=== PATIENT | female | born 1990 | race Caucasian/White ===

== ENCOUNTER 2016-12-23 19:08 | Emergency (ER) | payer OTHER ==
[2016-12-23 19:24] VITALS: TEMP 98.3
[2016-12-23] MEDS ORDERED: SODIUM CHLORIDE 0.9% 1,000 ML IV STA ×2 (19:35)
[2016-12-23] MEDS ORDERED: HYDROmorphone 1 MG/ML 1 ML SYRINGE IVP STA (19:35)
[2016-12-23] MEDS ORDERED: ONDANSETRON 4 MG/2 ML VIAL IVP STA (19:35)
--- NOTE | 2016-12-23 19:38 | ED ---
General Adult HPI - General Chief complaint: Abdominal Pain Stated complaint: lower back & abdominal pain Time Seen by Provider: 12/23/16 19:31 Source: patient, RN notes reviewed Mode of arrival: ambulatory Limitations: no limitations - History of Present Illness Initial comments: Patient 26-year-old female who presents emergency room today with a chief complaint of right-sided flank pain over the last week. Does admit to some discomfort in lower side of the right back. Sitting today the pain greatly increased describes it as sharp pain also having pain sharp in nature to the right side of the lower abdomen. Patient states symptoms remind her of kidney stones that she had once in the past. She admits she's been somewhat nauseated today. She does admit to increased urinary frequency. She denies any other complaints or associated symptoms. Patient denies any recent fever, chills, shortness of breath, chest pain, numbness or tingling, dysuria or hematuria, constipation or diarrhea, headaches or visual changes, or any other complaints. - Related Data Home Medications Medication Instructions Recorded Confirmed Ibuprofen [Motrin] 800 mg PO TID PRN 12/23/16 12/23/16 Allergies Allergy/AdvReac Type Severity Reaction Status Date / Time latex Allergy Skin Verified 12/23/16 19:28 Irritation Review of Systems ROS Statement: Those systems with pertinent positive or pertinent negative responses have been documented in the HPI. ROS Other: All systems not noted in ROS Statement are negative. Past Medical History Past Medical History: No Reported History Additional Past Medical History / Comment(s): Obstetric history: O+ abs neg, Rub nonimmune, Hep B neg, HIV NR. EDC by a 6 week US. 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 History of Any Multi-Drug Resistant Organisms: None Reported Past Surgical History: Cholecystectomy Additional Past Surgical History / Comment(s): Laparoscopy and four knee surgeries Past Anesthesia/Blood Transfusion Reactions: No Reported Reaction Past Psychological History: Anxiety Smoking Status: Never smoker Past Alcohol Use History: None Reported Past Drug Use History: None Reported - Past Family History Father Family Medical History: Diabetes Mellitus, Hypertension General Exam - General Exam Comments Initial Comments: General: The patient is awake and alert, in no distress, and does not appear acutely ill. Eye: Pupils are equal, round and reactive to light, extra-ocular movements are intact. No nystagmus. There is normal conjunctiva bilaterally. No signs of icterus. Ears, nose, mouth and throat: There are moist mucous membranes and no oral lesions. Neck: The neck is supple, there is no tenderness or JVD. Cardiovascular: There is a regular rate and rhythm. No murmur, rub or gallop is appreciated. Respiratory: Lungs are clear to auscultation, respirations are non-labored, breath sounds are equal. No wheezes, stridor, rales, or rhonchi. Gastrointestinal: Normal exam. Normal bowel sounds. Abdomen soft on palpation. Patient does have mild tenderness right flank. Mild tenderness right lower quadrant. No rebound tenderness no guarding. No CVA tenderness. Musculoskeletal: Normal ROM, no tenderness. Strength 5/5. Sensation intact. Pulses equal bilaterally 2+. Neurological: A&O x 3. CN II-XII intact, There are no obvious motor or sensory deficits. Coordination appears grossly intact. Speech is normal. Skin: Skin is warm and dry and no rashes or lesions are noted. Psychiatric: Cooperative, appropriate mood & affect, normal judgment. Limitations: no limitations Course Vital Signs 12/23/16 19:22 Temperature 98.3 F Pulse Rate 87 Respiratory 18 Rate Blood Pressure 136/82 O2 Sat by Pulse 100 Oximetry Medical Decision Making - Medical Decision Making Patient reexamined at this time shows no signs of distress. CAT scan revealing a right-sided ovarian cyst. No sign of appendicitis. Patient will be discharged home. - Lab Data Result diagrams: 12/23/16 19:45 12/23/16 19:45 Lab Results 12/23/16 12/23/16 12/23/16 Range/Units 19:45 19:45 19:45 WBC 8.2 (3.8-10.6) k/uL RBC 4.62 (3.80-5.40) m/uL Hgb 13.0 (11.4-16.0) gm/dL Hct 39.7 (34.0-46.0) % MCV 85.9 (80.0-100.0) fL MCH 28.0 (25.0-35.0) pg MCHC 32.6 (31.0-37.0) g/dL RDW 13.2 (11.5-15.5) % Plt Count 248 (150-450) k/uL Neutrophils % 64 % Lymphocytes % 28 % Monocytes % 5 % Eosinophils % 1 % Basophils % 0 % Neutrophils # 5.2 (1.3-7.7) k/uL Lymphocytes # 2.3 (1.0-4.8) k/uL Monocytes # 0.4 (0-1.0) k/uL Eosinophils # 0.1 (0-0.7) k/uL Basophils # 0.0 (0-0.2) k/uL Sodium 140 (137-145) mmol/L Potassium 4.1 (3.5-5.1) mmol/L Chloride 106 (98-107) mmol/L Carbon Dioxide 24 (22-30) mmol/L Anion Gap 10 mmol/L BUN 13 (7-17) mg/dL Creatinine 0.71 (0.52-1.04) mg/dL Est GFR (MDRD) Af Amer >60 (>60 ml/min/1.73 sqM) Est GFR (MDRD) Non-Af >60 (>60 ml/min/1.73 sqM) Glucose 93 (74-99) mg/dL Calcium 9.2 (8.4-10.2) mg/dL Total Bilirubin 0.7 (0.2-1.3) mg/dL AST 16 (14-36) U/L ALT 32 (9-52) U/L Alkaline Phosphatase 67 (38-126) U/L Total Protein 6.7 (6.3-8.2) g/dL Albumin 3.6 (3.5-5.0) g/dL Amylase 66 (30-110) U/L Lipase 154 (23-300) U/L Urine Color Urine Appearance (Clear) Urine pH (5.0-8.0) Ur Specific [place] (1.001-1.035) Urine Protein (Negative) Urine Glucose (UA) (Negative) Urine Ketones (Negative) Urine Blood (Negative) Urine Nitrate (Negative) Urine Bilirubin (Negative) Urine Urobilinogen (<2.0) mg/dL Ur Leukocyte Esterase (Negative) Urine RBC (0-5) /hpf Urine WBC (0-5) /hpf Ur Squamous Epith Cells (0-4) /hpf Calcium Oxalate Crystal (None) /hpf Amorphous Sediment (None) /hpf Urine HCG, Qual Not Detected (Not Detectd) 12/23/16 Range/Units 19:45 WBC (3.8-10.6) k/uL RBC (3.80-5.40) m/uL Hgb (11.4-16.0) gm/dL Hct (34.0-46.0) % MCV (80.0-100.0) fL MCH (25.0-35.0) pg MCHC (31.0-37.0) g/dL RDW (11.5-15.5) % Plt Count (150-450) k/uL Neutrophils % % Lymphocytes % % Monocytes % % Eosinophils % % Basophils % % Neutrophils # (1.3-7.7) k/uL Lymphocytes # (1.0-4.8) k/uL Monocytes # (0-1.0) k/uL Eosinophils # (0-0.7) k/uL Basophils # (0-0.2) k/uL Sodium (137-145) mmol/L Potassium (3.5-5.1) mmol/L Chloride (98-107) mmol/L Carbon Dioxide (22-30) mmol/L Anion Gap mmol/L BUN (7-17) mg/dL Creatinine (0.52-1.04) mg/dL Est GFR (MDRD) Af Amer (>60 ml/min/1.73 sqM) Est GFR (MDRD) Non-Af (>60 ml/min/1.73 sqM) Glucose (74-99) mg/dL Calcium (8.4-10.2) mg/dL Total Bilirubin (0.2-1.3) mg/dL AST (14-36) U/L ALT (9-52) U/L Alkaline Phosphatase (38-126) U/L Total Protein (6.3-8.2) g/dL Albumin (3.5-5.0) g/dL Amylase (30-110) U/L Lipase (23-300) U/L Urine Color Yellow Urine Appearance Cloudy H (Clear) Urine pH 7.5 (5.0-8.0) Ur Specific [place] 1.021 (1.001-1.035) Urine Protein Trace H (Negative) Urine Glucose (UA) Negative (Negative) Urine Ketones Negative (Negative) Urine Blood Negative (Negative) Urine Nitrate Negative (Negative) Urine Bilirubin Negative (Negative) Urine Urobilinogen <2.0 (<2.0) mg/dL Ur Leukocyte Esterase Moderate H (Negative) Urine RBC 1 (0-5) /hpf Urine WBC 8 H (0-5) /hpf Ur Squamous Epith Cells 6 H (0-4) /hpf Calcium Oxalate Crystal Occasional H (None) /hpf Amorphous Sediment Occasional H (None) /hpf Urine HCG, Qual (Not Detectd) Disposition Clinical Impression: Ovarian cyst Disposition: HOME SELF-CARE Condition: Good Instructions: Ovarian Cyst (ED) Additional Instructions: Please use medication as discussed. Please follow-up with family doctor/[employer] in the next 2 days of symptoms have not improved. Please return to emergency room if the symptoms increase or worsen or for any other concerns. Time of Disposition: 21:59
[2016-12-23 20:19] LABS: Basophils % (A) 0 %; CH 28.4; CHCM 33.2; Eosinophils # (A) 0.1 k/uL (0-0.7); Eosinophils % (A) 1 %; HCT 39.7 % (34.0-46.0); HDW 2.38; Luc # (Auto) 0.15; Luc % (Auto) 2; Lymphocytes # (A) 2.3 k/uL (1.0-4.8); Lymphocytes % (A) 28 %; MCHC 32.6 g/dL (31.0-37.0); MCV 85.9 fL (80.0-100.0); Mean Platelet Volume 7.8; Monocytes # (A) 0.4 k/uL (0-1.0); Monocytes % (A) 5 %; Neutrophils # (A) 5.2 k/uL (1.3-7.7); Neutrophils % (A) 64 %; RBC 4.62 m/uL (3.80-5.40); RDW 13.2 % (11.5-15.5); WBC 8.2 k/uL (3.8-10.6)
[2016-12-23 20:30] LABS: Amorphous Sediment,Urine Occasional /hpf; Appearance,Urine Cloudy (Clear); Bilirubin,Urine Negative (Negative); Calcium Oxalate Crystals,Urine Occasional /hpf; Glucose,Urine (UA) Negative (Negative); Ketones,Urine Negative (Negative); Leukocyte Esterase,Urine Moderate (Negative); Nitrite,Urine Negative (Negative); PH, Urine 7.5 (5.0-8.0); Particle Count 7847; Protein,Urine Trace (Negative); RBC,Urine 1 /hpf (0-5); Specific Gravity,Urine 1.021 (1.001-1.035); Squamous Epithelial Cell,Urine 6 /hpf (0-4); UA Billing (MACRO vs. MICRO) MICRO; Urobilinogen,Urine <2.0 mg/dL (<2.0); WBC,Urine 8 /hpf (0-5)
--- NOTE | 2016-12-23 20:31 | XR ---
EXAMINATION TYPE: XR KUB DATE OF EXAM: 12/23/2016 8:23 PM COMPARISON: 08/30/2016 HISTORY: Flank pain TECHNIQUE: 2 views FINDINGS: Bowel gas pattern is normal. There is no sign of intestinal obstruction or pneumoperitoneum . Fecal pattern is normal. There are clips from cholecystectomy. Lung bases are clear. There are no p athologic calcifications over the kidneys. IMPRESSION: Nonacute abdomen. No change.
[2016-12-23 20:56] LABS: ALT 32 U/L (9-52); AST 16 U/L (14-36); Alkaline Phosphatase 67 U/L (38-126); Amylase 66 U/L (30-110); Anion Gap 10 mmol/L; Blood Urea Nitrogen 13 mg/dL (7-17); Calcium 9.2 mg/dL (8.4-10.2); Carbon Dioxide 24 mmol/L (22-30); Chloride 106 mmol/L (98-107); Glucose 93 mg/dL (74-99); Non-African American GFR(MDRD) >60 (>60 ml/min/1.73 sqM); Potassium 4.1 mmol/L (3.5-5.1); Sodium 140 mmol/L (137-145); Total Bilirubin 0.7 mg/dL (0.2-1.3); Total Protein 6.7 g/dL (6.3-8.2)
[2016-12-23] MEDS ORDERED: RX INFO: IV CONTRAST WAS GIVEN 1 EACH MISC MISCELLANE PRN (21:14)
--- NOTE | 2016-12-23 21:53 | CT ---
EXAMINATION TYPE: CT abdomen pelvis w con DATE OF EXAM: 12/23/2016 9:38 PM COMPARISON: NONE HISTORY: Right flank and right lower quadrant pain. CT DLP: 416.30 mGycm Automated exposure control for dose reduction was used. TECHNIQUE: Helical acquisition of images was performed from the lung bases through the pelvis. CONTRAST: Performed without Oral Contrast and with IV Contrast, patient injected with 100 mL of Omnipaque 300. FINDINGS: The lung bases are clear. There is no pleural effusion. Heart size is normal. Liver spleen pancreas appear normal. There are clips from cholecystectomy. Bile ducts are not dilated . There is no adrenal mass. Kidneys show satisfactory contrast opacification. There is no hydronephro sis. There are bilateral 1 cm cortical cysts. There is no retroperitoneal adenopathy. There is a 4 cm cyst on the right ovary. There is no free fluid. Bladder distends smoothly. I see no intestinal wall thickening. There are no dilated loops. Appendix is not seen. There is no sign of appendicitis. I se e no bony destructive process. Uterus is retroverted. IMPRESSION: LARGE RIGHT OVARIAN CYST. NO EVIDENCE OF APPENDICITIS. NO EVIDENCE OF RENAL STONE OR OBSTRUCTION. SMA LL BILATERAL RENAL CYSTS.
[2016-12-23 22:05] VITALS: RESP 16
[2016-12-23 22:13] VITALS: BP 118/69; PULSE 66
== END 2016-12-23 22:04 | disposition home or self-care (01) ==
LOC: EC 19:08
DX: N83.201 Unspecified ovarian cyst, right side (principal); Z91.040 Latex allergy status
CPT/HCPCS: 99284; 96374; 96375; 36415; 80053; 82150; 83690; 85025; 81001; 81025; 74000; 74177; J2405; J1170; Q9967

== ENCOUNTER → 2016-12-29 | Outpatient (CLI) | payer OTHER ==
--- NOTE | 2016-12-29 21:22 | US ---
EXAMINATION TYPE: US pelvic complete DATE OF EXAM: 12/29/2016 4:28 PM COMPARISON: CT abdomen and pelvis 12/23/2016. Prior pelvic ultrasound May 15, 2016. CLINICAL HISTORY: N83.20 PREV OVARIAN CYST. Recent abnormal CT. TECHNIQUE: Transabdominal (TA) pelvic ultrasound only, offered TV approach and patient said no since we saw cyst transabdominally. Date of LMP: 12/02/2016 EXAM MEASUREMENTS: Uterus: 11.0 x 4.6 x 3.6cm Endometrial Stripe: 0.6cm Right Ovary: 4.5 x 3.8 x 3.9cm Left Ovary: 2.9 x 2.2 x 1.7cm TECHNOLOGIST IMPRESSION: 1. Uterus: flexed uterus wnl 2. Endometrium: wnl 3. Right Ovary: complex 4.1cm with daughter cysts seen within 4. Left Ovary: wnl 5. Bilateral Adnexa: wnl 6. Posterior cul-de-sac: wnl Corresponding to recent CT there is 4.5 x 3.9 x 3.8 cm cystic lesion in right ovary that has several thin round septations internally. No suspicious nodularity is identified. Exam is suboptimal as color and transvaginal imaging is not performed, latter refused by patient per technologist. IMPRESSION: Corresponding to recent CT there is new 4.1 cm cystic lesion with round thin internal sep ta. No suspicious nodularity is seen on images saved. Suboptimal study as detailed above. Vascularity is not assessed. Malignant etiology felt less likely given interval new lesion since prior ultrasoun d.
== END | disposition home or self-care (01) ==
LOC: RADUSWWP 16:13
PROVIDERS: ATTEND Obstetrics & Gynecology
DX: N83.209 Unspecified ovarian cyst, unspecified side (principal)
CPT/HCPCS: 76856

== ENCOUNTER → 2017-02-09 | Outpatient (CLI) | payer OTHER ==
--- NOTE | 2017-02-09 09:42 | US ---
EXAMINATION TYPE: US pelvic complete DATE OF EXAM: 02/09/2017 9:12 AM COMPARISON: prior scans in pacs CLINICAL HISTORY: N83.20 Previous ovarian cyst. Follow up on previously seen rt ovarian cyst TECHNIQUE: Transabdominal (TA) EXAM MEASUREMENTS: Uterus: 7.3 x 4.9 x 6.1 cm Endometrial Stripe: 0.8 cm Right Ovary: 3.6 x 2.3 x 2.4 cm Left Ovary: 3.2 x 2.3 x 2.6 cm 1. Uterus: Retroflexed wnl 2. Endometrium: wnl 3. Right Ovary: wnl 4. Left Ovary: wnl 5. Bilateral Adnexa: wnl 6. Posterior cul-de-sac: no free fluid seen IMPRESSION: 1. No acute process.
== END | disposition home or self-care (01) ==
LOC: RADUSWWP 08:56
PROVIDERS: ATTEND Obstetrics & Gynecology
DX: N83.201 Unspecified ovarian cyst, right side (principal)
CPT/HCPCS: 76856

== ENCOUNTER 2017-07-07 21:25 | Emergency (ER) | payer OTHER ==
[2017-07-07 21:32] VITALS: RESP 18
[2017-07-07] MEDS ORDERED: DICYCLOMINE 10 MG/ML 2 ML AMP IM STA (21:45)
[2017-07-07] MEDS ORDERED: ONDANSETRON 4 MG/2 ML VIAL IVP STA (21:45)
[2017-07-07] MEDS ORDERED: SODIUM CHLORIDE 0.9% 1,000 ML IV STA (21:45)
--- NOTE | 2017-07-07 21:49 | ED ---
Abdominal Pain HPI - General Chief Complaint: Abdominal Pain Stated Complaint: abdominal pain Time Seen by Provider: 07/07/17 21:40 Source: patient Mode of arrival: ambulatory Limitations: no limitations - History of Present Illness Initial Comments: 27-year-old female patient presents to the emergency department for evaluation of abdominal pain and diarrhea. Patient states that Wednesday evening she began to have generalized abdominal cramping. Patient states Wednesday she began to have frequent episodes of watery diarrhea. Patient states that she has had several watery bowel movement movements daily since then. States that she has intermittent sharp crampy abdominal pain that waxes and wanes. She states she has vomited one time however doesn't feel nauseous. Patient states that whenever she eats or drinks anything she immediately has to have a bowel movement. Patient denies any recent fever, chills, shortness breath, chest pain , constipation, back pain, numbness, tingling, weakness, hematuria, dysuria, urinary frequency, urinary urgency, headache, visual changes, or any other complaints. She denies any dark, bloody, or black stools. Denies any recent travel or sick contacts. - Related Data Previous Rx's Medication Instructions Recorded Ibuprofen [Motrin] 800 mg PO Q6HR PRN #30 tab 12/23/16 Dicyclomine [Bentyl] 20 mg PO QID #20 tablet 07/07/17 Ondansetron [Zofran ODT] 4 mg PO Q8HR #10 tab 07/07/17 Allergies Allergy/AdvReac Type Severity Reaction Status Date / Time latex Allergy Skin Verified 07/07/17 22:31 Irritation Review of Systems ROS Statement: Those systems with pertinent positive or pertinent negative responses have been documented in the HPI. ROS Other: All systems not noted in ROS Statement are negative. Past Medical History Past Medical History: No Reported History Additional Past Medical History / Comment(s): Obstetric history: O+ abs neg, Rub nonimmune, Hep B neg, HIV NR. EDC by a 6 week US. 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 History of Any Multi-Drug Resistant Organisms: None Reported Past Surgical History: Cholecystectomy Additional Past Surgical History / Comment(s): Laparoscopy and four knee surgeries Past Anesthesia/Blood Transfusion Reactions: No Reported Reaction Past Psychological History: Anxiety Smoking Status: Never smoker Past Alcohol Use History: None Reported Past Drug Use History: None Reported - Past Family History Father Family Medical History: Diabetes Mellitus, Hypertension General Exam Limitations: no limitations General appearance: alert, in no apparent distress Eye exam: Present: normal appearance, PERRL, EOMI. Absent: scleral icterus, conjunctival injection, periorbital swelling ENT exam: Present: normal exam, normal oropharynx, mucous membranes moist Neck exam: Present: normal inspection. Absent: tenderness, meningismus, lymphadenopathy Respiratory exam: Present: normal lung sounds bilaterally. Absent: respiratory distress, wheezes, rales, rhonchi, stridor Cardiovascular Exam: Present: regular rate, normal rhythm, normal heart sounds. Absent: systolic murmur, diastolic murmur, rubs, gallop, clicks GI/Abdominal exam: Present: soft, hyperactive bowel sounds. Absent: distended, tenderness, guarding, rebound, rigid, normal bowel sounds Extremities exam: Present: normal inspection, full ROM, normal capillary refill. Absent: tenderness, pedal edema, joint swelling, calf tenderness Back exam: Present: normal inspection Neurological exam: Present: alert, oriented X3, CN II-XII intact Psychiatric exam: Present: normal affect, normal mood Skin exam: Present: warm, dry, intact, normal color. Absent: rash Course Vital Signs 07/07/17 07/07/17 21:30 23:22 Temperature 97.8 F 98.7 F Pulse Rate 96 60 Respiratory 18 18 Rate Blood Pressure 117/80 128/60 O2 Sat by Pulse 100 100 Oximetry Medical Decision Making - Medical Decision Making 27-year-old female patient presents to emergency department today for complaints of diarrhea and abdominal cramping. Labs were reviewed and were unremarkable except for a large amount of leukocyte esterase in the urine. Urine was sent for culture. Patient was given IV fluids, Bentyl, and Zofran here in department and is feeling much better. Patient will be discharged home with a prescription for Zofran and Bentyl by mouth. Patient instructed to follow up with her primary care physician for recheck in 1-2 days. Instructed to return here immediately for any new, worsening, or concerning symptoms. Patient verbalizes understanding and agrees with this plan. - Lab Data Result diagrams: 07/07/17 21:54 07/07/17 21:54 Lab Results 08/23/17 08/23/17 08/23/17 Range/Units 21:54 21:54 22:29 WBC 10.9 H (3.8-10.6) k/uL RBC 5.09 (3.80-5.40) m/uL Hgb 14.7 (11.4-16.0) gm/dL Hct 43.1 (34.0-46.0) % MCV 84.7 (80.0-100.0) fL MCH 28.8 (25.0-35.0) pg MCHC 34.0 (31.0-37.0) g/dL RDW 13.1 (11.5-15.5) % Plt Count 328 (150-450) k/uL Neutrophils % 61 % Lymphocytes % 32 % Monocytes % 4 % Eosinophils % 1 % Basophils % 0 % Neutrophils # 6.6 (1.3-7.7) k/uL Lymphocytes # 3.5 (1.0-4.8) k/uL Monocytes # 0.4 (0-1.0) k/uL Eosinophils # 0.1 (0-0.7) k/uL Basophils # 0.0 (0-0.2) k/uL Sodium 141 (137-145) mmol/L Potassium 3.9 (3.5-5.1) mmol/L Chloride 106 (98-107) mmol/L Carbon Dioxide 22 (22-30) mmol/L Anion Gap 13 mmol/L BUN 14 (7-17) mg/dL Creatinine 0.80 (0.52-1.04) mg/dL Est GFR (MDRD) Af Amer >60 (>60 ml/min/1.73 sqM) Est GFR (MDRD) Non-Af >60 (>60 ml/min/1.73 sqM) Glucose 85 (74-99) mg/dL Calcium 10.0 (8.4-10.2) mg/dL Total Bilirubin 0.5 (0.2-1.3) mg/dL AST 15 (14-36) U/L ALT 32 (9-52) U/L Alkaline Phosphatase 83 (38-126) U/L Total Protein 7.7 (6.3-8.2) g/dL Albumin 4.5 (3.5-5.0) g/dL Amylase 82 (30-110) U/L Lipase 203 (23-300) U/L Urine Color Urine Appearance (Clear) Urine pH (5.0-8.0) Ur Specific [place] (1.001-1.035) Urine Protein (Negative) Urine Glucose (UA) (Negative) Urine Ketones (Negative) Urine Blood (Negative) Urine Nitrite (Negative) Urine Bilirubin (Negative) Urine Urobilinogen (<2.0) mg/dL Ur Leukocyte Esterase (Negative) Urine RBC (0-5) /hpf Urine WBC (0-5) /hpf Ur Squamous Epith Cells (0-4) /hpf Urine Bacteria (None) /hpf Urine HCG, Qual Not Detected (Not Detectd) 07/07/17 Range/Units 22:29 WBC (3.8-10.6) k/uL RBC (3.80-5.40) m/uL Hgb (11.4-16.0) gm/dL Hct (34.0-46.0) % MCV (80.0-100.0) fL MCH (25.0-35.0) pg MCHC (31.0-37.0) g/dL RDW (11.5-15.5) % Plt Count (150-450) k/uL Neutrophils % % Lymphocytes % % Monocytes % % Eosinophils % % Basophils % % Neutrophils # (1.3-7.7) k/uL Lymphocytes # (1.0-4.8) k/uL Monocytes # (0-1.0) k/uL Eosinophils # (0-0.7) k/uL Basophils # (0-0.2) k/uL Sodium (137-145) mmol/L Potassium (3.5-5.1) mmol/L Chloride (98-107) mmol/L Carbon Dioxide (22-30) mmol/L Anion Gap mmol/L BUN (7-17) mg/dL Creatinine (0.52-1.04) mg/dL Est GFR (MDRD) Af Amer (>60 ml/min/1.73 sqM) Est GFR (MDRD) Non-Af (>60 ml/min/1.73 sqM) Glucose (74-99) mg/dL Calcium (8.4-10.2) mg/dL Total Bilirubin (0.2-1.3) mg/dL AST (14-36) U/L ALT (9-52) U/L Alkaline Phosphatase (38-126) U/L Total Protein (6.3-8.2) g/dL Albumin (3.5-5.0) g/dL Amylase (30-110) U/L Lipase (23-300) U/L Urine Color Light Yellow Urine Appearance Cloudy H (Clear) Urine pH 6.0 (5.0-8.0) Ur Specific [place] 1.013 (1.001-1.035) Urine Protein Negative (Negative) Urine Glucose (UA) Negative (Negative) Urine Ketones Negative (Negative) Urine Blood Negative (Negative) Urine Nitrite Negative (Negative) Urine Bilirubin Negative (Negative) Urine Urobilinogen <2.0 (<2.0) mg/dL Ur Leukocyte Esterase Large H (Negative) Urine RBC 2 (0-5) /hpf Urine WBC 1 (0-5) /hpf Ur Squamous Epith Cells 2 (0-4) /hpf Urine Bacteria Rare H (None) /hpf Urine HCG, Qual (Not Detectd) Disposition Clinical Impression: Gastroenteritis, Acute diarrhea Disposition: HOME SELF-CARE Condition: Good Instructions: Gastroenteritis (ED), Acute Diarrhea (ED) Additional Instructions: Increase fluids including Gatorade or Powerade. Start with clear liquid diet advance as tolerated. Bring stool sample for evaluation. Follow-up with primary care physician for recheck in 1-2 days. Return immediately for any new , worsening, or concerning symptoms. Prescriptions: Dicyclomine [Bentyl] 20 mg PO QID #20 tablet Ondansetron [Zofran ODT] 4 mg PO Q8HR #10 tab Referrals: Yassnie Pratt MD [Primary Care Provider] - 1-2 days Time of Disposition: 23:02
[2017-07-07 22:10] LABS: Basophils % (A) 0 %; CH 28.6; CHCM 33.9; Eosinophils # (A) 0.1 k/uL (0-0.7); Eosinophils % (A) 1 %; HCT 43.1 % (34.0-46.0); HDW 2.36; HGB 14.7 gm/dL (11.4-16.0); Luc # (Auto) 0.24; Luc % (Auto) 2; Lymphocytes # (A) 3.5 k/uL (1.0-4.8); Lymphocytes % (A) 32 %; MCH 28.8 pg (25.0-35.0); MCV 84.7 fL (80.0-100.0); Mean Platelet Volume 7.3; Monocytes # (A) 0.4 k/uL (0-1.0); Monocytes % (A) 4 %; Neutrophils # (A) 6.6 k/uL (1.3-7.7); Neutrophils % (A) 61 %; RBC 5.09 m/uL (3.80-5.40); RDW 13.1 % (11.5-15.5); WBC 10.9 k/uL (3.8-10.6); WBC (Perox) 10.89
[2017-07-07 22:13] LABS: ALT 32 U/L (9-52); AST 15 U/L (14-36); Alkaline Phosphatase 83 U/L (38-126); Amylase 82 U/L (30-110); Anion Gap 13 mmol/L; Blood Urea Nitrogen 14 mg/dL (7-17); Carbon Dioxide 22 mmol/L (22-30); Chloride 106 mmol/L (98-107); Glucose 85 mg/dL (74-99); Non-African American GFR(MDRD) >60 (>60 ml/min/1.73 sqM); Potassium 3.9 mmol/L (3.5-5.1); Sodium 141 mmol/L (137-145); Total Bilirubin 0.5 mg/dL (0.2-1.3); Total Protein 7.7 g/dL (6.3-8.2)
[2017-07-07 22:48] LABS: Appearance,Urine Cloudy (Clear); Bacteria,Urine Rare /hpf; Bilirubin,Urine Negative (Negative); Glucose,Urine (UA) Negative (Negative); Ketones,Urine Negative (Negative); Leukocyte Esterase,Urine Large (Negative); Nitrite,Urine Negative (Negative); Particle Count 2063; Protein,Urine Negative (Negative); RBC,Urine 2 /hpf (0-5); Specific Gravity,Urine 1.013 (1.001-1.035); Squamous Epithelial Cell,Urine 2 /hpf (0-4); UA Billing (MACRO vs. MICRO) MICRO; Urobilinogen,Urine <2.0 mg/dL (<2.0); WBC,Urine 1 /hpf (0-5)
[2017-07-07 23:25] VITALS: BP 128/60; PULSE 60; TEMP 98.7
== END 2017-07-07 23:22 | disposition home or self-care (01) ==
LOC: EC 21:25
DX: K52.9 Noninfective gastroenteritis and colitis, unspecified (principal); Z91.040 Latex allergy status
CPT/HCPCS: 36415; 80053; 82150; 83690; 85025; 81001; 81025; 87086; 99284; 96374; 96361; 96372; J0500; J2405; 87077; 87186

== ENCOUNTER 2017-09-26 18:29 | Emergency (ER) | payer OTHER ==
[2017-09-26 18:49] VITALS: BP 123/73; PULSE 87; RESP 18; TEMP 98.9
[2017-09-26] MEDS ORDERED: DEXAMETHASONE 4 MG TAB PO STA (19:37)
[2017-09-26] MEDS ORDERED: AMOXIC-POT CLAV 875-125MG 1 EACH TAB PO STA (19:37)
--- NOTE | 2017-09-26 19:42 | ED ---
ENT HPI - General Chief complaint: ENT Stated complaint: Fever, Sore Throat Time Seen by Provider: 09/26/17 19:06 Source: patient Mode of arrival: ambulatory Limitations: no limitations - History of Present Illness Initial comments: Patient is 27-year-old female presenting to the emergency department with chief complaint of sore throat 2 days associated with fevers and body aches. complaint: sore throat Onset/Timin -: days(s) Location: throat Severity: moderate Severity scale (1-10): 8 Quality: burning, sharp Consistency: constant Improves with: NSAID Worsens with: swallowing Associated Symptoms: fever, pain with swallowing - Related Data Home Medications Medication Instructions Recorded Confirmed Acetaminophen Tab [Tylenol Tab] 1,000 mg PO Q6HR PRN 09/26/17 09/26/17 Ibuprofen [Motrin] 800 mg PO TID PRN 09/26/17 09/26/17 Previous Rx's Medication Instructions Recorded Amoxic-Pot Clav 875-125Mg 1 tab PO Q12HR #19 tablet 09/26/17 [Augmentin 875-125] Allergies Allergy/AdvReac Type Severity Reaction Status Date / Time latex Allergy Skin Verified 09/26/17 18:56 Irritation Review of Systems ROS Statement: Those systems with pertinent positive or pertinent negative responses have been documented in the HPI. ROS Other: All systems not noted in ROS Statement are negative. Past Medical History Past Medical History: No Reported History Additional Past Medical History / Comment(s): Obstetric history: O+ abs neg, Rub nonimmune, Hep B neg, HIV NR. EDC by a 6 week US. 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 History of Any Multi-Drug Resistant Organisms: None Reported Past Surgical History: Cholecystectomy, Orthopedic Surgery Additional Past Surgical History / Comment(s): Laparoscopy and four knee surgeries Past Anesthesia/Blood Transfusion Reactions: No Reported Reaction Past Psychological History: Anxiety Smoking Status: Never smoker Past Alcohol Use History: None Reported Past Drug Use History: None Reported - Past Family History Father Family Medical History: Diabetes Mellitus, Hypertension General Exam - General Exam Comments Initial Comments: GENERAL: Pt awake and alert, well-appearing, well-nourished, and in no acute distress. HEAD: Atraumatic, normocephalic. EYES: Pupils equal, round, and reactive to light, extraocular movements intact, sclera anicteric, conjunctiva are normal. ENT: Posterior pharynx erythematous right tonsillar exudate. Uvula midline. Moist mucous membranes. NECK:Normal range of motion, supple left anterior neck lymphadenopathy. LUNGS: Breath sounds clear to auscultation bilaterally. No wheezes, rales, or rhonchi. HEART: Heart S1, S2, no S3 or S4. Regular rate and rhythm. No murmurs, rubs or gallops. ABDOMEN: Soft, nontender, nondistended, normoactive bowel sounds. No guarding, no rebound. No masses or organomegaly appreciated. MUSCULOSKELETAL: Normal ROM, no tenderness. Strength 5/5. EXTREMITIES: 2+ peripheral pulses. No edema, clubbing or cyanosis. No calf tenderness. NEUROLOGICAL: Pt oriented x 3. Cranial nerves II through XII grossly intact. Strength and sensation grossly intact. PSYCH: Normal mood, normal affect. SKIN: Warm, dry, intact. Normal turgor. No rashes or lesions. Limitations: no limitations Expanded Mouth exam: Absent: drooling, trismus, muffled voice, tongue normal, tongue elevation Course Vital Signs 09/26/17 18:47 Temperature 98.9 F Pulse Rate 87 Respiratory 18 Rate Blood Pressure 123/73 O2 Sat by Pulse 100 Oximetry Medical Decision Making - Medical Decision Making Pharyngitis suspect bacterial. Strep screen and influenza screening negative. Patient given 1 dose of Augmentin and Decadron in the emergency department. Patient instructed to continue Motrin for pain. Patient discharged home on Augmentin. Patient instructed to follow-up with primary care physician as directed. Patient started to return to the emergency department with any new or worsening symptoms. Patient agrees to treatment plan. Discharge instructions and return parameters reviewed. - Lab Data Lab Results 09/26/17 09/26/17 Range/Units 19:07 19:07 Influenza Type A RNA Not Detected (Not Detectd) Influenza Type B (PCR) Not Detected (Not Detectd) Group A Strep Rapid Negative (Negative) Disposition Clinical Impression: Pharyngitis Disposition: HOME SELF-CARE Condition: Good Instructions: Pharyngitis (ED) Additional Instructions: Finish antibiotics as prescribed. Continue Motrin for pain or discomfort. Increase oral intake. Please return to the emergency department with any new or worsening symptoms. Follow-up with primary care physician as directed. Prescriptions: Amoxic-Pot Clav 875-125Mg [Augmentin 875-125] 1 tab PO Q12HR #19 tablet Referrals: Yassine Pratt MD [Primary Care Provider] - 1-2 days Time of Disposition: 19:41
== END 2017-09-26 19:47 | disposition home or self-care (01) ==
LOC: EC 18:29
DX: J02.9 Acute pharyngitis, unspecified (principal); Z91.040 Latex allergy status
CPT/HCPCS: 87081; 87430; 87502; 99283; J8540

== ENCOUNTER 2017-09-27 20:52 | Emergency (ER) | payer OTHER ==
[2017-09-27] MEDS ORDERED: LIDOCAINE VISCOUS 2% 15 ML CUP MUCOUS MEM STA (21:24)
--- NOTE | 2017-09-27 21:31 | ED ---
ENT HPI - General Chief complaint: ENT Stated complaint: Recheck/Sore throat Time Seen by Provider: 09/27/17 21:10 Source: patient, family Mode of arrival: ambulatory Limitations: no limitations - History of Present Illness Initial comments: 's patient is a 27-year-old woman who states that she started having sore throat on about . She states that the pain is burning, it has gotten progressively worse. She was seen at [facility] Wednesday, and then here on yesterday. She states that she had 2 strep tests that were negative and yesterday she was started on Augmentin, but she continued to have sore throat. She states the pain is now moderately severe, worse with swallowing. She also has some discomfort to both ears. She has had fevers intermittently. She states that yesterday in addition to starting her on Timentin, she was given some Decadron which did improve the swelling that she had noted, but she has started having a little bit of cough after receiving the medicine. She does note that both of her children have had cold-like symptoms as well. MD complaint: sore throat, difficulty swallowing -: days(s) Location: throat Severity: severe Quality: burning Consistency: constant Improves with: none Worsens with: swallowing Associated Symptoms: fever, pain with swallowing, sore throat - Related Data Home Medications Medication Instructions Recorded Confirmed Acetaminophen Tab [Tylenol Tab] 1,000 mg PO Q6HR PRN 09/26/17 09/27/17 Ibuprofen [Motrin] 800 mg PO TID PRN 09/26/17 09/27/17 Previous Rx's Medication Instructions Recorded Amoxic-Pot Clav 875-125Mg 1 tab PO Q12HR #19 tablet 09/26/17 [Augmentin 875-125] Lidocaine Viscous [Xylocaine 5 ml PO Q3HR PRN #100 ml 09/27/17 Viscous 2%] Allergies Allergy/AdvReac Type Severity Reaction Status Date / Time latex Allergy Skin Verified 09/27/17 21:24 Irritation Review of Systems ROS Statement: Those systems with pertinent positive or pertinent negative responses have been documented in the HPI. ROS Other: All systems not noted in ROS Statement are negative. Constitutional: Reports: fever ENT: Reports: ear pain, throat pain Respiratory: Reports: cough. Denies: dyspnea Cardiovascular: Denies: chest pain, syncope Gastrointestinal: Reports: vomiting (Patient states that she did have an episode of vomiting yesterday). Denies: abdominal pain, diarrhea Genitourinary: Denies: dysuria, hematuria Musculoskeletal: Denies: back pain Skin: Denies: rash Neurological: Denies: headache, weakness, numbness Past Medical History Past Medical History: No Reported History Additional Past Medical History / Comment(s): Obstetric history: O+ abs neg, Rub nonimmune, Hep B neg, HIV NR. EDC by a 6 week US. 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 History of Any Multi-Drug Resistant Organisms: None Reported Past Surgical History: Cholecystectomy, Orthopedic Surgery Additional Past Surgical History / Comment(s): Laparoscopy and four knee surgeries Past Anesthesia/Blood Transfusion Reactions: No Reported Reaction Past Psychological History: Anxiety Smoking Status: Never smoker Past Alcohol Use History: None Reported Past Drug Use History: None Reported - Past Family History Father Family Medical History: Diabetes Mellitus, Hypertension General Exam Limitations: no limitations General appearance: alert, in no apparent distress Head exam: Present: atraumatic, normocephalic Eye exam: Present: normal appearance. Absent: scleral icterus, conjunctival injection ENT exam: Present: mucous membranes moist, TM's normal bilaterally, normal external ear exam, other (The patient has an approximately half centimeter ulceration to the right soft palate. There is also a little bit of inflammation to the right tonsillar pillar. The uvula is midline without edema. No evidence of peritonsillar abscess.) Neck exam: Present: normal inspection, tenderness, full ROM, lymphadenopathy ( Tender anterior cervical nodes). Absent: meningismus Respiratory exam: Present: normal lung sounds bilaterally. Absent: respiratory distress, wheezes, rales, rhonchi, stridor Cardiovascular Exam: Present: regular rate, normal rhythm, normal heart sounds. Absent: systolic murmur, diastolic murmur, rubs, gallop GI/Abdominal exam: Present: soft. Absent: distended, tenderness, guarding, rebound, rigid, organomegaly, mass, pulsatile mass, hernia Skin exam: Present: warm, dry, intact, normal color. Absent: rash Course Vital Signs 09/27/17 20:57 Temperature 99 F Pulse Rate 82 Respiratory 18 Rate Blood Pressure 139/86 O2 Sat by Pulse 99 Oximetry Disposition Clinical Impression: Pharyngitis Disposition: HOME SELF-CARE Condition: Good Instructions: Pharyngitis (ED) Prescriptions: Lidocaine Viscous [Xylocaine Viscous 2%] 5 ml PO Q3HR PRN #100 ml PRN Reason: Sore Throat Referrals: Yassine Pratt MD [Primary Care Provider] - 1-2 days
[2017-09-27 22:25] VITALS: BP 110/62; PULSE 67; RESP 20; TEMP 98.6
== END 2017-09-27 22:25 | disposition home or self-care (01) ==
LOC: EC 20:52
DX: J02.9 Acute pharyngitis, unspecified (principal); Z91.040 Latex allergy status
CPT/HCPCS: 99282

== ENCOUNTER → 2017-11-11 | Outpatient (CLI) | payer OTHER ==
--- NOTE | 2017-11-11 12:17 | CT ---
EXAMINATION TYPE: CT abdomen wo con DATE OF EXAM: 11/11/2017 COMPARISON: 12/23/2016 HISTORY: 27-year-old female with abdominal pain and cramping TECHNIQUE: Contiguous axial scanning of the abdomen without IV contrast. Coronal and sagittal reconst ructions performed. CT DLP: 446 mGycm Automated exposure control for dose reduction was used. FINDINGS: The heart is normal size without pericardial effusion. Lung bases clear without pleural effusion. Noncontrast appearance of the liver, and spleen show no gross abnormality. There is some soft tissue which appears contiguous with the pancreatic head that may extend along the right lateral aspect of the second portion of the duodenum, refer to axial images 28 through 33. Cho lecystectomy clips are present. Subcentimeter hypodensity lateral left kidney too small for accurate CT characterization but was pres ent previously suggestive of a cyst. No evidence for nephrolithiasis or hydronephrosis on either side. No dilated small bowel, free fluid, or free air. Scattered small mesenteric lymph nodes are demonstra tarsha. Normal appendix. Mild to moderate overall stool burden without pericolic inflammatory change. The pelvis is not imaged. No osseous destructive process. Some disc bulges are noted at L4-L5 and L5-S1. IMPRESSION: 1 STATUS POST CHOLECYSTECTOMY. 2. QUESTIONABLE FINDINGS OF POSSIBLE ANNULAR PANCREAS. IF THIS EVER BECOMES CLINICALLY IMPORTANT, CON TRAST ENHANCED MRI COULD FURTHER ASSESS. 3. OTHERWISE, NO ACUTE INFLAMMATORY PROCESS IDENTIFIED IN THE UPPER ABDOMEN.
== END | disposition home or self-care (01) ==
LOC: RADCTMAIN 11:01
PROVIDERS: ATTEND Family Medicine
DX: R10.30 Lower abdominal pain, unspecified (principal); Z90.49 Acquired absence of other specified parts of digestive tract
CPT/HCPCS: 74150

== ENCOUNTER → 2017-12-04 | Outpatient (CLI) | payer OTHER ==
--- NOTE | 2017-12-05 16:14 | MR ---
EXAMINATION TYPE: MR abdomen wo/w con DATE OF EXAM: 12/04/2017 COMPARISON: Correlation CT 11/11/2017 HISTORY: 27-year-old female R93.5 stomach pain, abnormal CT Technique: Multiplanar, multisequence images of the abdomen were obtained before and after administra tion of 6.5 mL intravenous Gadavist gadolinium contrast. FINDINGS: Heart normal size without pericardial effusion. The signal changes to suggest fatty infiltration of the liver. Cholecystectomy clips are present. No focal liver lesion or biliary ductal dilatation seen. Portal venous system is patent. A subcentimeter nonenhancing T2 hyperintense lesion within each kidney compatible with cyst. Symmetri c uptake and excretion of contrast from the kidneys. Adrenal glands and spleen within normal limits. Some pancreatic tissue does appear to encircle the second portion of the duodenum, for example, serie s 701 image 54 and series 801 image 296. Also, the accessory pancreatic duct appears to arise from th is ventral portion of the pancreas, series 301 image 10 and 11. No upper abdominal lymphadenopathy, ascites fluid, or gross bowel abnormality seen. IMPRESSION: 1. Findings suggest annular pancreas. There are no obstructive changes. The clinical significance is uncertain. 2. Status post cholecystectomy. No biliary ductal dilatation.
== END | disposition home or self-care (01) ==
LOC: RADMRIMAIN 09:17
PROVIDERS: ATTEND Family Medicine
DX: R93.5 Abnormal findings on diagnostic imaging of other abdominal regions, including retroperitoneum (principal); Z90.49 Acquired absence of other specified parts of digestive tract
CPT/HCPCS: 74183; A9581

== ENCOUNTER 2017-12-14 17:09 | Emergency (ER) | payer OTHER ==
[2017-12-14 17:24] VITALS: TEMP 98.6
[2017-12-14] MEDS ORDERED: SODIUM CHLORIDE 0.9% 500 ML IV STA (17:56)
[2017-12-14] MEDS ORDERED: ONDANSETRON 4 MG/2 ML VIAL IVP STA (17:56)
--- NOTE | 2017-12-14 18:15 | ED ---
General Adult HPI - General Chief complaint: Abdominal Pain Stated complaint: Abd.pain Time Seen by Provider: 12/14/17 17:20 Source: patient, RN notes reviewed Mode of arrival: ambulatory Limitations: no limitations - History of Present Illness Initial comments: 27-year-old female presents emergency Department complaining of epigastric abdominal pain. Patient states she's had abdominal pain for months and she was just told she probably needs surgery for an annular pancreas. Patient states the pain is gotten worse over the last couple days she's come to the emergency department and she was directed. Patient denies any nausea vomiting per patient denies any fever chills. Patient denies any diarrhea. Patient denies any lower abdominal pain. Patient denies any radiation to back. Patient states she has had a cholecystectomy in the past. - Related Data Previous Rx's Medication Instructions Recorded Acetaminophen with Codeine 1 each PO Q4H #20 tab 12/14/17 [Tylenol w/codeine #3] Allergies Allergy/AdvReac Type Severity Reaction Status Date / Time latex Allergy Skin Verified 12/14/17 18:21 Irritation Review of Systems ROS Statement: Those systems with pertinent positive or pertinent negative responses have been documented in the HPI. ROS Other: All systems not noted in ROS Statement are negative. Past Medical History Past Medical History: No Reported History Additional Past Medical History / Comment(s): Obstetric history: O+ abs neg, Rub nonimmune, Hep B neg, HIV NR. EDC by a 6 week US. 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 annualar pancreas History of Any Multi-Drug Resistant Organisms: None Reported Past Surgical History: Cholecystectomy, Orthopedic Surgery Additional Past Surgical History / Comment(s): Laparoscopy and four knee surgeries Past Anesthesia/Blood Transfusion Reactions: No Reported Reaction Past Psychological History: Anxiety Smoking Status: Never smoker Past Alcohol Use History: None Reported Past Drug Use History: None Reported - Past Family History Father Family Medical History: Diabetes Mellitus, Hypertension General Exam - General Exam Comments Initial Comments: GENERAL: Patient is well-developed and well-nourished. Patient is nontoxic and well- hydrated and is in mild distress. ENT: Neck is soft and supple. No significant lymphadenopathy is noted. Oropharynx is clear. Moist mucous membranes. Neck has full range of motion without eliciting any pain. There is no thyroid enlargement and no masses were felt. EYES: The sclera were anicteric and conjunctiva were pink and moist. Extraocular movements were intact and pupils were equal round and reactive to light. Eyelids were unremarkable. PULMONARY: Unlabored respirations. Good breath sounds bilaterally. No audible rales rhonchi or wheezing was noted. CARDIOVASCULAR: There is a regular rate and rhythm without any murmurs gallops or rubs. Femoral pulses are equal bilaterally ABDOMEN: Epigastric abdominal pain SKIN: Skin is clear with no lesions or rashes and otherwise unremarkable. NEUROLOGIC: Patient is alert and oriented x3. Cranial nerves II through XII are grossly intact. Motor and sensory are also intact. Normal speech, volume and content. Symmetrical smile. MUSCULOSKELETAL: Normal extremities with adequate strength and full range of motion. No lower extremity swelling or edema. No calf tenderness. LYMPHATICS: No significant lymphadenopathy is noted PSYCHIATRIC: Normal psychiatric evaluation. Normal interpersonal interactions appears functionally intact in deals appropriately with others. No signs of depression. No signs of anxiety. Limitations: no limitations Course Vital Signs 12/14/17 12/14/17 17:20 18:30 Temperature 98.6 F Pulse Rate 18 L 97 Respiratory 115 H 16 Rate Blood Pressure 137/82 115/70 O2 Sat by Pulse 100 100 Oximetry Medical Decision Making - Medical Decision Making I spoke with Dr. Pratt about the patient as well as Dr. Davila they will follow the patient up as an outpatient. - Lab Data Result diagrams: 12/14/17 18:08 12/14/17 18:08 Lab Results 12/14/17 12/14/17 Range/Units 18:08 18:08 WBC 10.1 (3.8-10.6) k/uL RBC 4.59 (3.80-5.40) m/uL Hgb 13.1 (11.4-16.0) gm/dL Hct 40.2 (34.0-46.0) % MCV 87.6 (80.0-100.0) fL MCH 28.5 (25.0-35.0) pg MCHC 32.5 (31.0-37.0) g/dL RDW 14.3 (11.5-15.5) % Plt Count 285 (150-450) k/uL Neutrophils % 68 % Lymphocytes % 25 % Monocytes % 4 % Eosinophils % 1 % Basophils % 0 % Neutrophils # 6.9 (1.3-7.7) k/uL Lymphocytes # 2.6 (1.0-4.8) k/uL Monocytes # 0.4 (0-1.0) k/uL Eosinophils # 0.1 (0-0.7) k/uL Basophils # 0.0 (0-0.2) k/uL Sodium 143 (137-145) mmol/L Potassium 3.9 (3.5-5.1) mmol/L Chloride 107 (98-107) mmol/L Carbon Dioxide 25 (22-30) mmol/L Anion Gap 11 mmol/L BUN 12 (7-17) mg/dL Creatinine 0.70 (0.52-1.04) mg/dL Est GFR (MDRD) Af Amer >60 (>60 ml/min/1.73 sqM) Est GFR (MDRD) Non-Af >60 (>60 ml/min/1.73 sqM) Glucose 89 (74-99) mg/dL Calcium 9.7 (8.4-10.2) mg/dL Total Bilirubin 0.4 (0.2-1.3) mg/dL AST 17 (14-36) U/L ALT 24 (9-52) U/L Alkaline Phosphatase 78 (38-126) U/L Total Protein 7.3 (6.3-8.2) g/dL Albumin 4.2 (3.5-5.0) g/dL Amylase 81 (30-110) U/L Lipase 187 (23-300) U/L Disposition Clinical Impression: Epigastric abdominal pain Disposition: HOME SELF-CARE Condition: Good Instructions: Abdominal Pain (ED) Prescriptions: Acetaminophen with Codeine [Tylenol w/codeine #3] 1 each PO Q4H #20 tab Referrals: Yassine Pratt MD [Primary Care Provider] - 1-2 days Time of Disposition: 19:06
[2017-12-14 18:20] LABS: Basophils % (A) 0 %; Eosinophils # (A) 0.1 k/uL (0-0.7); Eosinophils % (A) 1 %; HCT 40.2 % (34.0-46.0); HGB 13.1 gm/dL (11.4-16.0); Lymphocytes # (A) 2.6 k/uL (1.0-4.8); Lymphocytes % (A) 25 %; MCH 28.5 pg (25.0-35.0); MCHC 32.5 g/dL (31.0-37.0); MCV 87.6 fL (80.0-100.0); Mean Platelet Volume 7.7; Monocytes # (A) 0.4 k/uL (0-1.0); Monocytes % (A) 4 %; Neutrophils # (A) 6.9 k/uL (1.3-7.7); Neutrophils % (A) 68 %; Platelet Count 285 k/uL (150-450); RBC 4.59 m/uL (3.80-5.40); RDW 14.3 % (11.5-15.5); WBC 10.1 k/uL (3.8-10.6)
[2017-12-14 18:32] VITALS: BP 115/70; PULSE 97; RESP 16
[2017-12-14 18:34] LABS: ALT 24 U/L (9-52); AST 17 U/L (14-36); Albumin 4.2 g/dL (3.5-5.0); Alkaline Phosphatase 78 U/L (38-126); Amylase 81 U/L (30-110); Anion Gap 11 mmol/L; Blood Urea Nitrogen 12 mg/dL (7-17); Calcium 9.7 mg/dL (8.4-10.2); Carbon Dioxide 25 mmol/L (22-30); Chloride 107 mmol/L (98-107); Glucose 89 mg/dL (74-99); Lipase 187 U/L (23-300); Potassium 3.9 mmol/L (3.5-5.1); Sodium 143 mmol/L (137-145); Total Bilirubin 0.4 mg/dL (0.2-1.3); Total Protein 7.3 g/dL (6.3-8.2)
[2017-12-14] MEDS ORDERED: HYDROmorphone 0.5 MG/0.5 ML SYRINGE IVP STA (18:38)
== END 2017-12-14 19:15 | disposition home or self-care (01) ==
LOC: EC 17:09
DX: R10.13 Epigastric pain (principal); Z87.19 Personal history of other diseases of the digestive system; Z91.040 Latex allergy status; Z90.49 Acquired absence of other specified parts of digestive tract
CPT/HCPCS: 36415; 80053; 82150; 83690; 85025; 99284; 96374; 96375; 96361; J2405; J1170

== ENCOUNTER 2017-12-30 19:48 | Emergency (ER) | payer OTHER ==
[2017-12-30] MEDS ORDERED: SODIUM CHLORIDE 0.9% 1,000 ML IV STA (21:15)
[2017-12-30] MEDS ORDERED: HYDROmorphone 0.5 MG/0.5 ML SYRINGE IVP STA (21:15)
[2017-12-30] MEDS ORDERED: ONDANSETRON 4 MG/2 ML VIAL IVP STA (21:15)
--- NOTE | 2017-12-30 21:18 | ED ---
Abdominal Pain HPI - General Chief Complaint: Abdominal Pain Stated Complaint: Abd Pain Time Seen by Provider: 12/30/17 21:07 Source: patient Mode of arrival: ambulatory Limitations: no limitations - History of Present Illness Initial Comments: 27-year-old female patient presents to the emergency department today for complaints of upper abdominal pain. Patient states that the pain has been present and severe for the last 3 days. 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 States that she is awaiting appointment with a GI specialist and report hospital however it takes a while to get in. Patient states that she has been nauseated with the pain. States that she has been constant for the last couple days however did start to have some diarrhea today. She states that the diarrhea is mucousy. She denies any hematochezia or melena. She denies any fevers or chills with this. Denies any radiation of pain into her back. Denies any urinary symptoms. Denies any chance of . Patient denies any recent rash, shortness breath, chest pain, numbness, tingling, dizziness, weakness, hematuria, dysuria, urinary urgency, urinary frequency, headache, visual changes, or any other complaints. - Related Data Home Medications Medication Instructions Recorded Confirmed HYDROcodone/APAP 5-325MG [[place] 1 tab PO Q6HR PRN 12/30/17 12/30/17 5-325] Allergies Allergy/AdvReac Type Severity Reaction Status Date / Time latex Allergy Skin Verified 12/30/17 21:17 Irritation Review of Systems ROS Statement: Those systems with pertinent positive or pertinent negative responses have been documented in the HPI. ROS Other: All systems not noted in ROS Statement are negative. Past Medical History Past Medical History: No Reported History Additional Past Medical History / Comment(s): Obstetric history: O+ abs neg, Rub nonimmune, Hep B neg, HIV NR. EDC by a 6 week US. 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 annualar pancreas History of Any Multi-Drug Resistant Organisms: None Reported Past Surgical History: Cholecystectomy, Orthopedic Surgery Additional Past Surgical History / Comment(s): Laparoscopy and four knee surgeries Past Anesthesia/Blood Transfusion Reactions: No Reported Reaction Past Psychological History: Anxiety Smoking Status: Never smoker Past Alcohol Use History: None Reported Past Drug Use History: None Reported - Past Family History Father Family Medical History: Diabetes Mellitus, Hypertension General Exam Limitations: no limitations General appearance: alert, in no apparent distress, other (This is a well- developed, well-nourished adult female patient in mild distress related to pain. Vital signs upon presentation are temperature 98.9F, pulse 94, respirations 20, blood pressure 123/77, pulse ox 100% on room air.) Eye exam: Present: normal appearance, PERRL, EOMI. Absent: scleral icterus, conjunctival injection, periorbital swelling ENT exam: Present: normal exam, normal oropharynx, mucous membranes moist Respiratory exam: Present: normal lung sounds bilaterally. Absent: respiratory distress, wheezes, rales, rhonchi, stridor Cardiovascular Exam: Present: regular rate, normal rhythm, normal heart sounds. Absent: systolic murmur, diastolic murmur, rubs, gallop, clicks GI/Abdominal exam: Present: soft, tenderness (Midepigastric and right upper quadrant tenderness), normal bowel sounds. Absent: distended, guarding, rebound , rigid Neurological exam: Present: alert, oriented X3, CN II-XII intact Psychiatric exam: Present: normal affect, normal mood Skin exam: Present: warm, dry, intact, normal color. Absent: rash Course Vital Signs 12/30/17 12/30/17 20:10 22:34 Temperature 98.9 F 97.5 F L Pulse Rate 94 88 Respiratory 20 18 Rate Blood Pressure 123/77 121/70 O2 Sat by Pulse 100 98 Oximetry Medical Decision Making - Medical Decision Making 27-year-old female patient with past medical history significant for an annular pancreas presented to the emergency department today for evaluation of upper abdominal pain. Physical examination did reveal some upper abdominal tenderness. Labs reviewed and were unremarkable. KUB x-ray was obtained and showed no acute intra-abdominal process. Ultrasound was obtained and showed no dilated ducts and negative exam. Did discuss findings and results with the patient. She does have an appointment with a GI specialist to [facility] at the end of this month. She is instructed to call them for a sooner appointment. She is instructed to take her home pain medications as instructed. She is instructed to return here immediately for any new, worsening , or concerning symptoms. She verbalizes understanding and agrees with this plan. - Lab Data Result diagrams: 12/30/17 21:20 12/30/17 21:20 Lab Results 12/30/17 12/30/17 12/30/17 Range/Units 21:20 21:20 21:20 WBC 11.4 H (3.8-10.6) k/uL RBC 4.59 (3.80-5.40) m/uL Hgb 12.9 (11.4-16.0) gm/dL Hct 38.9 (34.0-46.0) % MCV 84.8 (80.0-100.0) fL MCH 28.1 (25.0-35.0) pg MCHC 33.1 (31.0-37.0) g/dL RDW 13.0 (11.5-15.5) % Plt Count 332 (150-450) k/uL Neutrophils % 58 % Lymphocytes % 33 % Monocytes % 6 % Eosinophils % 1 % Basophils % 0 % Neutrophils # 6.6 (1.3-7.7) k/uL Lymphocytes # 3.8 (1.0-4.8) k/uL Monocytes # 0.7 (0-1.0) k/uL Eosinophils # 0.1 (0-0.7) k/uL Basophils # 0.1 (0-0.2) k/uL Sodium 141 (137-145) mmol/L Potassium 3.9 (3.5-5.1) mmol/L Chloride 104 (98-107) mmol/L Carbon Dioxide 27 (22-30) mmol/L Anion Gap 10 mmol/L BUN 9 (7-17) mg/dL Creatinine 0.71 (0.52-1.04) mg/dL Est GFR (MDRD) Af Amer >60 (>60 ml/min/1.73 sqM) Est GFR (MDRD) Non-Af >60 (>60 ml/min/1.73 sqM) Glucose 82 (74-99) mg/dL Calcium 9.6 (8.4-10.2) mg/dL Total Bilirubin 0.4 (0.2-1.3) mg/dL AST 17 (14-36) U/L ALT 28 (9-52) U/L Alkaline Phosphatase 58 (38-126) U/L Total Protein 6.8 (6.3-8.2) g/dL Albumin 3.9 (3.5-5.0) g/dL Amylase 65 (30-110) U/L Lipase 163 (23-300) U/L Urine Color Urine Appearance (Clear) Urine pH (5.0-8.0) Ur Specific [place] (1.001-1.035) Urine Protein (Negative) Urine Glucose (UA) (Negative) Urine Ketones (Negative) Urine Blood (Negative) Urine Nitrite (Negative) Urine Bilirubin (Negative) Urine Urobilinogen (<2.0) mg/dL Ur Leukocyte Esterase (Negative) Urine HCG, Qual Not Detected (Not Detectd) 12/30/17 Range/Units 21:20 WBC (3.8-10.6) k/uL RBC (3.80-5.40) m/uL Hgb (11.4-16.0) gm/dL Hct (34.0-46.0) % MCV (80.0-100.0) fL MCH (25.0-35.0) pg MCHC (31.0-37.0) g/dL RDW (11.5-15.5) % Plt Count (150-450) k/uL Neutrophils % % Lymphocytes % % Monocytes % % Eosinophils % % Basophils % % Neutrophils # (1.3-7.7) k/uL Lymphocytes # (1.0-4.8) k/uL Monocytes # (0-1.0) k/uL Eosinophils # (0-0.7) k/uL Basophils # (0-0.2) k/uL Sodium (137-145) mmol/L Potassium (3.5-5.1) mmol/L Chloride (98-107) mmol/L Carbon Dioxide (22-30) mmol/L Anion Gap mmol/L BUN (7-17) mg/dL Creatinine (0.52-1.04) mg/dL Est GFR (MDRD) Af Amer (>60 ml/min/1.73 sqM) Est GFR (MDRD) Non-Af (>60 ml/min/1.73 sqM) Glucose (74-99) mg/dL Calcium (8.4-10.2) mg/dL Total Bilirubin (0.2-1.3) mg/dL AST (14-36) U/L ALT (9-52) U/L Alkaline Phosphatase (38-126) U/L Total Protein (6.3-8.2) g/dL Albumin (3.5-5.0) g/dL Amylase (30-110) U/L Lipase (23-300) U/L Urine Color Yellow Urine Appearance Clear (Clear) Urine pH 7.0 (5.0-8.0) Ur Specific [place] 1.012 (1.001-1.035) Urine Protein Negative (Negative) Urine Glucose (UA) Negative (Negative) Urine Ketones Negative (Negative) Urine Blood Negative (Negative) Urine Nitrite Negative (Negative) Urine Bilirubin Negative (Negative) Urine Urobilinogen <2.0 (<2.0) mg/dL Ur Leukocyte Esterase Negative (Negative) Urine HCG, Qual (Not Detectd) - Radiology Data Radiology results: report reviewed, image reviewed Two-view x-ray of the abdomen shows no sign of intestinal obstruction or pneumoperitoneum. Fecal pattern is normal. There are clips from cholecystectomy. There is no sign of a mass. Lung bases are clear. Impression by Dr. Wilson shows nonacute abdomen with no adverse change compared to old exam. Ultrasound of the abdomen was obtained for midepigastric, right upper quadrant pain. Report was reviewed in its entirety. Impression by Dr. Wilson shows cholecystectomy. No dilated ducts. No free fluid. Disposition Clinical Impression: Upper abdominal pain Disposition: HOME SELF-CARE Condition: Good Instructions: Abdominal Pain (ED) Additional Instructions: Increase fluids. Take home pain medications as directed. Call your GI specialist to try to get a sooner appointment. Return here immediately for any new, worsening, or concerning symptoms. Referrals: Yassine Pratt MD [Primary Care Provider] - 1-2 days Time of Disposition: 23:54
[2017-12-30 21:32] LABS: Basophils # (A) 0.1 k/uL (0-0.2); Basophils % (A) 0 %; Eosinophils # (A) 0.1 k/uL (0-0.7); Eosinophils % (A) 1 %; HCT 38.9 % (34.0-46.0); HGB 12.9 gm/dL (11.4-16.0); Lymphocytes # (A) 3.8 k/uL (1.0-4.8); Lymphocytes % (A) 33 %; MCH 28.1 pg (25.0-35.0); MCHC 33.1 g/dL (31.0-37.0); MCV 84.8 fL (80.0-100.0); Mean Platelet Volume 7.7; Monocytes # (A) 0.7 k/uL (0-1.0); Monocytes % (A) 6 %; Neutrophils # (A) 6.6 k/uL (1.3-7.7); Neutrophils % (A) 58 %; Platelet Count 332 k/uL (150-450); RBC 4.59 m/uL (3.80-5.40); WBC 11.4 k/uL (3.8-10.6)
[2017-12-30 21:33] LABS: Appearance,Urine Clear (Clear); Bilirubin,Urine Negative (Negative); Blood,Urine Negative (Negative); Color,Urine Yellow; Glucose,Urine (UA) Negative (Negative); Ketones,Urine Negative (Negative); Leukocyte Esterase,Urine Negative (Negative); Nitrite,Urine Negative (Negative); Protein,Urine Negative (Negative); Specific Gravity,Urine 1.012 (1.001-1.035); Urobilinogen,Urine <2.0 mg/dL (<2.0)
[2017-12-30 21:41] LABS: ALT 28 U/L (9-52); AST 17 U/L (14-36); Albumin 3.9 g/dL (3.5-5.0); Alkaline Phosphatase 58 U/L (38-126); Amylase 65 U/L (30-110); Anion Gap 10 mmol/L; Blood Urea Nitrogen 9 mg/dL (7-17); Calcium 9.6 mg/dL (8.4-10.2); Carbon Dioxide 27 mmol/L (22-30); Chloride 104 mmol/L (98-107); Glucose 82 mg/dL (74-99); Lipase 163 U/L (23-300); Potassium 3.9 mmol/L (3.5-5.1); Sodium 141 mmol/L (137-145); Total Bilirubin 0.4 mg/dL (0.2-1.3); Total Protein 6.8 g/dL (6.3-8.2)
--- NOTE | 2017-12-30 22:00 | XR ---
EXAMINATION TYPE: XR KUB DATE OF EXAM: 12/30/2017 COMPARISON: December 23, 2016 HISTORY: Abdominal pain TECHNIQUE: 2 views FINDINGS: There is no sign of intestinal obstruction or pneumoperitoneum. Fecal pattern is normal. Th ere are clips from cholecystectomy. There is no sign of a mass. Lung bases are clear. IMPRESSION: Nonacute abdomen. No adverse change compared to old exam.
[2017-12-30] MEDS ORDERED: HYDROmorphone 2 MG/ML 1 ML SYRINGE IVP STA (22:30)
--- NOTE | 2017-12-30 23:36 | US ---
EXAMINATION TYPE: US abdomen limited DATE OF EXAM: 12/30/2017 COMPARISON: NONE CLINICAL HISTORY: Midepigastric, RUQ pain. RUQ pain EXAM MEASUREMENTS: Liver Length: 17.1 cm Gallbladder Wall: Surgically absent cm CBD: 0.6 cm Right Kidney: 09.4 x 3.9 x 4.8 cm Pancreas: Duct visualized measuring 2mm. Liver: wnl Gallbladder: Surgically absent CBD: wnl Right Kidney: No hydronephrosis or masses seen IMPRESSION: Cholecystectomy. No dilated ducts. No free fluid.
[2017-12-31 00:03] VITALS: BP 110/56; PULSE 76; RESP 20; TEMP 98.2
== END 2017-12-31 00:03 | disposition home or self-care (01) ==
LOC: EC 19:48
DX: R10.11 Right upper quadrant pain (principal); R10.13 Epigastric pain; R11.0 Nausea; R19.7 Diarrhea, unspecified; Z91.040 Latex allergy status; Z90.49 Acquired absence of other specified parts of digestive tract
CPT/HCPCS: 36415; 80053; 82150; 83690; 85025; 81003; 81025; 74018; 76705; 99284; 96374; 96375; 96376; 96361; J1170 ×2; J2405

== ENCOUNTER 2018-03-20 18:27 | Emergency (ER) | payer OTHER ==
[2018-03-20] MEDS ORDERED: FAMOTIDINE 20 MG/2 ML VIAL IV STA (18:46)
[2018-03-20] MEDS ORDERED: ONDANSETRON 4 MG/2 ML VIAL IVP STA (18:46)
[2018-03-20] MEDS ORDERED: MAG HYDROX/AL HYDROX/SIMETH 30 ML CUP PO PRN (18:46)
[2018-03-20] MEDS ORDERED: SUCRALFATE 1 GM TAB PO STA (18:46)
[2018-03-20] MEDS ORDERED: LIDOCAINE VISCOUS 2% 15 ML CUP MUCOUS MEM ONE (18:46)
[2018-03-20 19:13] LABS: Basophils % (A) 0 %; Eosinophils # (A) 0.1 k/uL (0-0.7); Eosinophils % (A) 1 %; HCT 40.5 % (34.0-46.0); HGB 13.8 gm/dL (11.4-16.0); Lymphocytes # (A) 2.8 k/uL (1.0-4.8); Lymphocytes % (A) 26 %; MCH 28.5 pg (25.0-35.0); MCHC 34.1 g/dL (31.0-37.0); MCV 83.5 fL (80.0-100.0); Mean Platelet Volume 7.6; Monocytes # (A) 0.5 k/uL (0-1.0); Monocytes % (A) 5 %; Neutrophils # (A) 7.1 k/uL (1.3-7.7); Neutrophils % (A) 67 %; Platelet Count 323 k/uL (150-450); RBC 4.85 m/uL (3.80-5.40); RDW 13.3 % (11.5-15.5); WBC 10.7 k/uL (3.8-10.6)
[2018-03-20] MEDS ORDERED: SODIUM CHLORIDE 0.9% 1,000 ML IV ONE (19:16)
[2018-03-20 19:20] LABS: Appearance,Urine Cloudy (Clear); Bacteria,Urine Moderate /hpf; Bilirubin,Urine Negative (Negative); Blood,Urine Negative (Negative); Color,Urine Yellow; Glucose,Urine (UA) Negative (Negative); Ketones,Urine Negative (Negative); Leukocyte Esterase,Urine Moderate (Negative); Mucus,Urine Rare /hpf; Nitrite,Urine Negative (Negative); PH, Urine 7.5 (5.0-8.0); Protein,Urine Trace (Negative); RBC,Urine 1 /hpf (0-5); Specific Gravity,Urine 1.015 (1.001-1.035); Squamous Epithelial Cell,Urine 11 /hpf (0-4); WBC,Urine 4 /hpf (0-5)
[2018-03-20 19:22] LABS: HCG,Qualitative Serum Not Detected
[2018-03-20 19:25] LABS: ALT 18 U/L (9-52); AST 16 U/L (14-36); Alkaline Phosphatase 61 U/L (38-126); Anion Gap 14 mmol/L; Blood Urea Nitrogen 9 mg/dL (7-17); Calcium 9.5 mg/dL (8.4-10.2); Carbon Dioxide 23 mmol/L (22-30); Chloride 106 mmol/L (98-107); Glucose 97 mg/dL (74-99); Lipase 165 U/L (23-300); Potassium 3.8 mmol/L (3.5-5.1); Sodium 143 mmol/L (137-145); Total Bilirubin 0.6 mg/dL (0.2-1.3)
--- NOTE | 2018-03-20 20:04 | ED ---
Abdominal Pain HPI - General Chief Complaint: Abdominal Pain Stated Complaint: Abd Pain Time Seen by Provider: 03/20/18 18:41 Source: patient Mode of arrival: ambulatory Limitations: no limitations - History of Present Illness Initial Comments: Patient presents with a chief complaint of abdominal pain. The patient says his urine for several days. She states that her pain is worse after eating. She characterization of shooting pain. There are no alleviating factors. Timing is constant. Patient has a significant medical history of an annular pancreas for which she is being seen at [facility]. Patient cannot identify any inciting incidences. She denies sick contacts. She admits to nausea but denies vomiting. No fevers, chills, chest pain, shortness of breath. - Related Data Home Medications Medication Instructions Recorded Confirmed HYDROcodone/APAP 5-325MG [[place] 1 tab PO Q6HR PRN 12/30/17 12/30/17 5-325] Previous Rx's Medication Instructions Recorded Omeprazole [PriLOSEC] 20 mg PO AC-BID #30 cap 03/20/18 Ranitidine HCl [Zantac] 150 mg PO HS #30 tab 03/20/18 Sucralfate [Carafate] 1 gm PO ACHS #30 tab 03/20/18 Allergies Allergy/AdvReac Type Severity Reaction Status Date / Time latex Allergy Skin Verified 03/20/18 18:34 Irritation Review of Systems ROS Statement: Those systems with pertinent positive or pertinent negative responses have been documented in the HPI. ROS Other: All systems not noted in ROS Statement are negative. Gastrointestinal: Reports: abdominal pain, nausea Past Medical History Past Medical History: No Reported History Additional Past Medical History / Comment(s): Obstetric history: O+ abs neg, Rub nonimmune, Hep B neg, HIV NR. EDC by a 6 week US. 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 annualar pancreas History of Any Multi-Drug Resistant Organisms: None Reported Past Surgical History: Cholecystectomy, Orthopedic Surgery Additional Past Surgical History / Comment(s): Laparoscopy and four knee surgeries Past Anesthesia/Blood Transfusion Reactions: No Reported Reaction Past Psychological History: Anxiety Smoking Status: Never smoker Past Alcohol Use History: None Reported Past Drug Use History: None Reported - Past Family History Father Family Medical History: Diabetes Mellitus, Hypertension General Exam Limitations: no limitations General appearance: alert, in no apparent distress Head exam: Present: atraumatic, normocephalic Eye exam: Present: normal appearance ENT exam: Present: normal exam Neck exam: Present: normal inspection Respiratory exam: Present: normal lung sounds bilaterally. Absent: respiratory distress, wheezes Cardiovascular Exam: Present: regular rate, normal rhythm GI/Abdominal exam: Present: soft. Absent: distended, tenderness Rectal exam: Present: deferred Extremities exam: Present: normal inspection Back exam: Present: normal inspection Neurological exam: Present: alert, oriented X3 Psychiatric exam: Present: normal affect, normal mood Skin exam: Present: warm, dry, intact Course Vital Signs 03/20/18 18:32 Temperature 98.1 F Pulse Rate 110 H Respiratory 20 Rate Blood Pressure 123/82 O2 Sat by Pulse 99 Oximetry Medical Decision Making - Medical Decision Making Patient is a 27-year-old female presents with the chief complaint of abdominal pain. On initial evaluation, vital signs are stable, patient is in no acute distress. Patient has a history of annular pancreas for which she is followed downtown at [facility]. The patient will be evaluated with basic labs. We'll hold on imaging at this point this patient has had this type of pain before, and abdomen is not peritoneal. patient will be treated with a GI cocktail. 8:03 PM Lab evaluation is unremarkable. On reevaluation the patient states her abdomen feels better. This time, I believe that imaging is not warranted. Patient will be prescribed Carafate, Prilosec, and Zantac. She was instructed on the use. Patient was instructed to follow up with primary care in 1-2 days, return to the emergency department if symptoms worsen or change. - Lab Data Result diagrams: 03/20/18 19:00 03/20/18 19:00 Lab Results 03/20/18 03/20/18 03/20/18 Range/Units 19:00 19:00 19:00 WBC 10.7 H (3.8-10.6) k/uL RBC 4.85 (3.80-5.40) m/uL Hgb 13.8 (11.4-16.0) gm/dL Hct 40.5 (34.0-46.0) % MCV 83.5 (80.0-100.0) fL MCH 28.5 (25.0-35.0) pg MCHC 34.1 (31.0-37.0) g/dL RDW 13.3 (11.5-15.5) % Plt Count 323 (150-450) k/uL Neutrophils % 67 % Lymphocytes % 26 % Monocytes % 5 % Eosinophils % 1 % Basophils % 0 % Neutrophils # 7.1 (1.3-7.7) k/uL Lymphocytes # 2.8 (1.0-4.8) k/uL Monocytes # 0.5 (0-1.0) k/uL Eosinophils # 0.1 (0-0.7) k/uL Basophils # 0.0 (0-0.2) k/uL Sodium 143 (137-145) mmol/L Potassium 3.8 (3.5-5.1) mmol/L Chloride 106 (98-107) mmol/L Carbon Dioxide 23 (22-30) mmol/L Anion Gap 14 mmol/L BUN 9 (7-17) mg/dL Creatinine 0.70 (0.52-1.04) mg/dL Est GFR (CKD-EPI)AfAm >90 (>60 ml/min/1.73 sqM) Est GFR (CKD-EPI)NonAf >90 (>60 ml/min/1.73 sqM) Glucose 97 (74-99) mg/dL Calcium 9.5 (8.4-10.2) mg/dL Total Bilirubin 0.6 (0.2-1.3) mg/dL AST 16 (14-36) U/L ALT 18 (9-52) U/L Alkaline Phosphatase 61 (38-126) U/L Total Protein 7.0 (6.3-8.2) g/dL Albumin 4.0 (3.5-5.0) g/dL Lipase 165 (23-300) U/L HCG, Qual Not Detected Urine Color Yellow Urine Appearance Cloudy H (Clear) Urine pH 7.5 (5.0-8.0) Ur Specific [place] 1.015 (1.001-1.035) Urine Protein Trace H (Negative) Urine Glucose (UA) Negative (Negative) Urine Ketones Negative (Negative) Urine Blood Negative (Negative) Urine Nitrite Negative (Negative) Urine Bilirubin Negative (Negative) Urine Urobilinogen 2.0 (<2.0) mg/dL Ur Leukocyte Esterase Moderate H (Negative) Urine RBC 1 (0-5) /hpf Urine WBC 4 (0-5) /hpf Ur Squamous Epith Cells 11 H (0-4) /hpf Urine Bacteria Moderate H (None) /hpf Urine Mucus Rare H (None) /hpf Disposition Clinical Impression: Abdominal pain Disposition: HOME SELF-CARE Condition: Good Instructions: Abdominal Pain (ED) Prescriptions: Omeprazole [PriLOSEC] 20 mg PO AC-BID #30 cap Ranitidine HCl [Zantac] 150 mg PO HS #30 tab Sucralfate [Carafate] 1 gm PO ACHS #30 tab Is patient prescribed a controlled substance at d/c from ED?: No Referrals: Yassine Pratt MD [Primary Care Provider] - 1-2 days
[2018-03-20 20:22] VITALS: BP 105/63; PULSE 88; RESP 18; TEMP 97.7
== END 2018-03-20 20:20 | disposition home or self-care (01) ==
LOC: EC 18:27
DX: R10.9 Unspecified abdominal pain (principal); R11.0 Nausea; Z91.040 Latex allergy status
CPT/HCPCS: 99284; 96374; 96375; 96361; 36415; 80053; 83690; 85025; 81001; 84703; J2405

== ENCOUNTER 2018-05-06 18:47 | Emergency (ER) | payer OTHER ==
--- NOTE | 2018-05-06 20:21 | ED ---
Abdominal Pain HPI - General Chief Complaint: Abdominal Pain Stated Complaint: Abd pain Time Seen by Provider: 05/06/18 19:56 Source: patient, family, RN notes reviewed Mode of arrival: ambulatory Limitations: no limitations - History of Present Illness Initial Comments: This is a 28-year-old female who presents to the emergency department with chief complaint of lower abdominal cramping. Patient states that she has had irregular periods for the last 2 months. She states that her period 2 months ago and consisted of spotting. Patient states that her previous period was late and only lasted for 1 day. This was last Wednesday afternoon into last Wednesday morning. Patient states she did follow up with her primary care provider yesterday and he did have a urine test that was negative. She states that they did draw blood but has not heard back about 3 results. Patient states that she has been experiencing nausea and today developed lower abdominal cramping that feels like period pains. She states that she has been eating a lot more and urinating more frequently. Denies any fevers or chills, chest pain or shortness of breath, constipation or diarrhea. She does admit to a history of ovarian cysts. - Related Data Home Medications Medication Instructions Recorded Confirmed No Known Home Medications [No 05/06/18 05/06/18 Known Home Medications] Allergies Allergy/AdvReac Type Severity Reaction Status Date / Time latex Allergy Skin Verified 05/06/18 20:22 Irritation Review of Systems ROS Statement: Those systems with pertinent positive or pertinent negative responses have been documented in the HPI. ROS Other: All systems not noted in ROS Statement are negative. Past Medical History Past Medical History: No Reported History Additional Past Medical History / Comment(s): Obstetric history: O+ abs neg, Rub nonimmune, Hep B neg, HIV NR. EDC by a 6 week US. 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 annualar pancreas History of Any Multi-Drug Resistant Organisms: None Reported Past Surgical History: Cholecystectomy, Orthopedic Surgery Additional Past Surgical History / Comment(s): Laparoscopy and four knee surgeries Past Anesthesia/Blood Transfusion Reactions: No Reported Reaction Past Psychological History: Anxiety Smoking Status: Never smoker Past Alcohol Use History: None Reported Past Drug Use History: None Reported - Past Family History Father Family Medical History: Diabetes Mellitus, Hypertension General Exam - General Exam Comments Initial Comments: General: Awake and alert, well-developed; in no apparent distress. HEENT: Head atraumatic, normocephalic. Pupils are equal, round and reactive to light. Extraocular movements intact. Oropharynx moist without erythema or exudate. Neck: Supple. Normal ROM. Cardiovascular: Regular rate and rhythm. No murmurs, rubs or gallops. Chest symmetrical. Respiratory: Lungs clear to auscultation bilaterally. No wheezes, rales or rhonchi. Normal respiratory effort with no use of accessory muscles. Abdomen: Soft, non-distended. Mild diffuse lower abdominal tenderness on palpation. No rigidity, rebound or guarding. Normal bowel sounds in all 4 quadrants. Musculoskeletal: Normal ROM, no tenderness bilateral upper and lower extremities. Ambulating normally. Skin: [place], warm and dry without rashes or lesions. Neurological: Alert and oriented x3. CN II-XII grossly intact. Speech is fluent and answers are appropriate. No focal neuro deficits. Psychiatric: Normal mood and affect. No overt signs of depression or anxiety noted. Limitations: no limitations External exam: Present: normal external exam Speculum exam: Present: normal speculum exam, cervical discharge (minimal white ). Absent: erythema, vaginal bleeding By manual exam: Present: normal by manual exam. Absent: cervical motion tenderness, adnexal tenderness, uterine tenderness Course Vital Signs 05/06/18 19:06 Temperature 98.2 F Pulse Rate 86 Respiratory 20 Rate Blood Pressure 125/83 O2 Sat by Pulse 100 Oximetry Medical Decision Making - Medical Decision Making This is a 28-year-old female who presents to the emergency department with chief complaint of lower abdominal cramping and irregular periods for the last 2 months. Patient was evaluated by her primary care physician yesterday and had a urine test that was negative. She is awaiting beta Quant that was drawn yesterday. Patient presents to the emergency department with chief complaint of lower abdominal cramping that started this evening. On physical examination, abdomen is soft and nontender. Pelvic exam is normal with no uterine, adnexal or cervical tenderness. Vital signs are stable and patient is in no acute distress. I recommended patient follow-up with her [employer] COUNSELING AIDE and primary care provider in regards to the irregular periods and to follow-up with the beta-hCG that was ordered yesterday by her primary care physician. Patient is in agreement with plan and voices understanding. She will be discharged home at this time. All questions answered. - Lab Data Result diagrams: 05/06/18 20:35 05/06/18 20:35 Lab Results 05/06/18 05/06/18 05/06/18 Range/Units 20:20 20:20 20:35 WBC (3.8-10.6) k/uL RBC (3.80-5.40) m/uL Hgb (11.4-16.0) gm/dL Hct (34.0-46.0) % MCV (80.0-100.0) fL MCH (25.0-35.0) pg MCHC (31.0-37.0) g/dL RDW (11.5-15.5) % Plt Count (150-450) k/uL Neutrophils % % Lymphocytes % % Monocytes % % Eosinophils % % Basophils % % Neutrophils # (1.3-7.7) k/uL Lymphocytes # (1.0-4.8) k/uL Monocytes # (0-1.0) k/uL Eosinophils # (0-0.7) k/uL Basophils # (0-0.2) k/uL Sodium 141 (137-145) mmol/L Potassium 3.8 (3.5-5.1) mmol/L Chloride 105 (98-107) mmol/L Carbon Dioxide 26 (22-30) mmol/L Anion Gap 10 mmol/L BUN 8 (7-17) mg/dL Creatinine 0.67 (0.52-1.04) mg/dL Est GFR (CKD-EPI)AfAm >90 (>60 ml/min/1.73 sqM) Est GFR (CKD-EPI)NonAf >90 (>60 ml/min/1.73 sqM) Glucose 87 (74-99) mg/dL Calcium 9.2 (8.4-10.2) mg/dL Total Bilirubin 0.3 (0.2-1.3) mg/dL AST 16 (14-36) U/L ALT 30 (9-52) U/L Alkaline Phosphatase 75 (38-126) U/L Total Protein 6.5 (6.3-8.2) g/dL Albumin 3.8 (3.5-5.0) g/dL Amylase 73 (30-110) U/L Lipase 145 (23-300) U/L Urine Color Light Yellow Urine Appearance Cloudy H (Clear) Urine pH 7.5 (5.0-8.0) Ur Specific [place] 1.008 (1.001-1.035) Urine Protein Negative (Negative) Urine Glucose (UA) Negative (Negative) Urine Ketones Negative (Negative) Urine Blood Negative (Negative) Urine Nitrite Negative (Negative) Urine Bilirubin Negative (Negative) Urine Urobilinogen <2.0 (<2.0) mg/dL Ur Leukocyte Esterase Large H (Negative) Urine RBC 4 (0-5) /hpf Urine WBC 4 (0-5) /hpf Ur Squamous Epith Cells 6 H (0-4) /hpf Urine Bacteria Many H (None) /hpf Urine Mucus Rare H (None) /hpf Urine HCG, Qual Not Detected (Not Detectd) 05/06/18 Range/Units 20:35 WBC 8.4 (3.8-10.6) k/uL RBC 4.45 (3.80-5.40) m/uL Hgb 12.6 (11.4-16.0) gm/dL Hct 37.6 (34.0-46.0) % MCV 84.5 (80.0-100.0) fL MCH 28.2 (25.0-35.0) pg MCHC 33.4 (31.0-37.0) g/dL RDW 13.5 (11.5-15.5) % Plt Count 318 (150-450) k/uL Neutrophils % 50 % Lymphocytes % 42 % Monocytes % 6 % Eosinophils % 1 % Basophils % 1 % Neutrophils # 4.2 (1.3-7.7) k/uL Lymphocytes # 3.5 (1.0-4.8) k/uL Monocytes # 0.5 (0-1.0) k/uL Eosinophils # 0.1 (0-0.7) k/uL Basophils # 0.0 (0-0.2) k/uL Sodium (137-145) mmol/L Potassium (3.5-5.1) mmol/L Chloride (98-107) mmol/L Carbon Dioxide (22-30) mmol/L Anion Gap mmol/L BUN (7-17) mg/dL Creatinine (0.52-1.04) mg/dL Est GFR (CKD-EPI)AfAm (>60 ml/min/1.73 sqM) Est GFR (CKD-EPI)NonAf (>60 ml/min/1.73 sqM) Glucose (74-99) mg/dL Calcium (8.4-10.2) mg/dL Total Bilirubin (0.2-1.3) mg/dL AST (14-36) U/L ALT (9-52) U/L Alkaline Phosphatase (38-126) U/L Total Protein (6.3-8.2) g/dL Albumin (3.5-5.0) g/dL Amylase (30-110) U/L Lipase (23-300) U/L Urine Color Urine Appearance (Clear) Urine pH (5.0-8.0) Ur Specific [place] (1.001-1.035) Urine Protein (Negative) Urine Glucose (UA) (Negative) Urine Ketones (Negative) Urine Blood (Negative) Urine Nitrite (Negative) Urine Bilirubin (Negative) Urine Urobilinogen (<2.0) mg/dL Ur Leukocyte Esterase (Negative) Urine RBC (0-5) /hpf Urine WBC (0-5) /hpf Ur Squamous Epith Cells (0-4) /hpf Urine Bacteria (None) /hpf Urine Mucus (None) /hpf Urine HCG, Qual (Not Detectd) Disposition Clinical Impression: Abdominal pain, Oligomenorrhea Disposition: HOME SELF-CARE Condition: Good Instructions: Abdominal Pain (ED) Additional Instructions: Please follow-up with your [employer] COUNSELING AIDE. Please follow up with your primary care provider in regards to beta-hCG that was drawn yesterday. Please follow up with primary care provider within 1-2 days. Return to emergency department if symptoms should worsen or any concerns arise. Is patient prescribed a controlled substance at d/c from ED?: No Referrals: Yassine Pratt MD [Primary Care Provider] - 1-2 days Time of Disposition: 21:36
[2018-05-06 20:47] LABS: Basophils % (A) 1 %; Eosinophils # (A) 0.1 k/uL (0-0.7); Eosinophils % (A) 1 %; HCT 37.6 % (34.0-46.0); HGB 12.6 gm/dL (11.4-16.0); Lymphocytes # (A) 3.5 k/uL (1.0-4.8); Lymphocytes % (A) 42 %; MCH 28.2 pg (25.0-35.0); MCHC 33.4 g/dL (31.0-37.0); MCV 84.5 fL (80.0-100.0); Mean Platelet Volume 7.3; Monocytes # (A) 0.5 k/uL (0-1.0); Monocytes % (A) 6 %; Neutrophils # (A) 4.2 k/uL (1.3-7.7); Neutrophils % (A) 50 %; Platelet Count 318 k/uL (150-450); RBC 4.45 m/uL (3.80-5.40); RDW 13.5 % (11.5-15.5); WBC 8.4 k/uL (3.8-10.6)
[2018-05-06 20:55] LABS: Appearance,Urine Cloudy (Clear); Bacteria,Urine Many /hpf; Bilirubin,Urine Negative (Negative); Blood,Urine Negative (Negative); Color,Urine Light Yellow; Glucose,Urine (UA) Negative (Negative); Ketones,Urine Negative (Negative); Leukocyte Esterase,Urine Large (Negative); Mucus,Urine Rare /hpf; Nitrite,Urine Negative (Negative); PH, Urine 7.5 (5.0-8.0); Protein,Urine Negative (Negative); RBC,Urine 4 /hpf (0-5); Specific Gravity,Urine 1.008 (1.001-1.035); Squamous Epithelial Cell,Urine 6 /hpf (0-4); Urobilinogen,Urine <2.0 mg/dL (<2.0); WBC,Urine 4 /hpf (0-5)
[2018-05-06 20:56] LABS: ALT 30 U/L (9-52); AST 16 U/L (14-36); Albumin 3.8 g/dL (3.5-5.0); Alkaline Phosphatase 75 U/L (38-126); Amylase 73 U/L (30-110); Anion Gap 10 mmol/L; Blood Urea Nitrogen 8 mg/dL (7-17); Calcium 9.2 mg/dL (8.4-10.2); Carbon Dioxide 26 mmol/L (22-30); Chloride 105 mmol/L (98-107); Glucose 87 mg/dL (74-99); Lipase 145 U/L (23-300); Potassium 3.8 mmol/L (3.5-5.1); Sodium 141 mmol/L (137-145); Total Bilirubin 0.3 mg/dL (0.2-1.3); Total Protein 6.5 g/dL (6.3-8.2)
[2018-05-06 21:59] VITALS: BP 137/82; PULSE 88; RESP 16; TEMP 97.9
== END 2018-05-06 21:45 | disposition home or self-care (01) ==
LOC: EC 18:47
DX: N91.5 Oligomenorrhea, unspecified (principal); N88.8 Other specified noninflammatory disorders of cervix uteri; R11.0 Nausea; R35.0 Frequency of micturition; R63.2 Polyphagia; Z91.040 Latex allergy status; Z90.49 Acquired absence of other specified parts of digestive tract
CPT/HCPCS: 36415; 80053; 81001; 81025; 82150; 83690; 85025; 99284

== ENCOUNTER → 2018-05-13 | Outpatient (CLI) | payer OTHER ==
--- NOTE | 2018-05-13 14:10 | US ---
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 Patient's mother had without showing positive test. TECHNIQUE: Transabdominal (TA). Date of LMP: 04/28/2018 EXAM MEASUREMENTS: Uterus: 7.0 x 5.9 x 4.3 cm Endometrial Stripe: 0.7 cm Right Ovary: 2.9 x 2.3 x 1.4 cm Left Ovary: 4.3 x 2.7 x 2.7 cm 1. Uterus: Retroverted 2. Endometrium: thickness and appearance is wnl for mid cycle endometrial phase 3. Right Ovary: multiple small follicles 4. Left Ovary: multiple follicles with largest = 1.2 x 1.0 x 1.0cm 5. Bilateral Adnexa: wnl 6. Posterior cul-de-sac: small amount of free fluid is noted in posterior Cul De Sac = 0.9 x 3.7 x 0 .5 x 0.523 = 0.9ml and is wnl as is <10.0ml. Slightly retroverted uterus is redemonstrated. Endometrium is not suspiciously thickened. Tiny amount of free fluid is seen in pelvic cul-de-sac, nonspecific finding. Both ovaries are identified. No suspicious adnexal lesions are seen on images saved. IMPRESSION: No suspicious finding on transabdominal pelvic ultrasound is seen to account for patient' s symptoms.
== END | disposition home or self-care (01) ==
LOC: RADUSWWP 13:12
PROVIDERS: ATTEND Family Medicine
DX: N91.5 Oligomenorrhea, unspecified (principal)
CPT/HCPCS: 76856

== ENCOUNTER 2018-08-02 18:23 | Emergency (ER) | payer OTHER ==
[2018-08-02 18:39] VITALS: BP 110/65; PULSE 94; RESP 16; TEMP 98.5
--- NOTE | 2018-08-02 18:48 | ED ---
Lower Extremity Injury HPI - General Chief Complaint: Extremity Injury, Lower Stated Complaint: rt foot injury Time Seen by Provider: 08/02/18 18:40 Source: patient, RN notes reviewed Mode of arrival: ambulatory Limitations: no limitations - History of Present Illness Initial Comments: This is a 28-year-old female who presents to the emergency department with chief complaint of right foot injury. Patient states approximately half an hour ago she became angry and kicked a laundry basket. Patient states that she felt a snap. She reports pain to the medial aspect of her foot. She states that she has difficulty bearing weight and ambulating. She denies any other injuries or trauma. Denies fever, chills, chest pain, shortness of breath, abdominal pain, nausea or vomiting, numbness or tingling, headache or vision changes. - Related Data Home Medications Medication Instructions Recorded Confirmed No Known Home Medications 05/06/18 08/02/18 Allergies Allergy/AdvReac Type Severity Reaction Status Date / Time latex Allergy Skin Verified 08/02/18 18:49 Irritation Review of Systems ROS Statement: Those systems with pertinent positive or pertinent negative responses have been documented in the HPI. ROS Other: All systems not noted in ROS Statement are negative. Past Medical History Past Medical History: No Reported History Additional Past Medical History / Comment(s): Obstetric history: O+ abs neg, Rub nonimmune, Hep B neg, HIV NR. EDC by a 6 week US. 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 annualar pancreas History of Any Multi-Drug Resistant Organisms: None Reported Past Surgical History: Cholecystectomy, Orthopedic Surgery Additional Past Surgical History / Comment(s): Laparoscopy and four knee surgeries Past Anesthesia/Blood Transfusion Reactions: No Reported Reaction Past Psychological History: Anxiety Smoking Status: Never smoker Past Alcohol Use History: None Reported Past Drug Use History: None Reported - Past Family History Father Family Medical History: Diabetes Mellitus, Hypertension General Exam - General Exam Comments Initial Comments: General: Awake and alert, well-developed; in no apparent distress. HEENT: Head atraumatic, normocephalic. Pupils are equal, round and reactive to light. Extraocular movements intact. Oropharynx moist without erythema or exudate. Neck: Supple. Normal ROM. Cardiovascular: Regular rate and rhythm. No murmurs, rubs or gallops. Chest symmetrical. Respiratory: Lungs clear to auscultation bilaterally. No wheezes, rales or rhonchi. Normal respiratory effort with no use of accessory muscles. Musculoskeletal: Normal range of motion of the right foot and ankle. There is tenderness and ecchymosis at the MTP joint of the right great toe. No obvious gross deformities. Sensation is intact. Pedal pulses are 2+ equal and palpable bilaterally. Skin: [place], warm and dry without rashes or lesions. Neurological: Alert and oriented x3. CN II-XII grossly intact. Speech is fluent and answers are appropriate. No focal neuro deficits. Psychiatric: Normal mood and affect. No overt signs of depression or anxiety noted. Limitations: no limitations Course Vital Signs 08/02/18 18:36 Temperature 98.5 F Pulse Rate 94 Respiratory 16 Rate Blood Pressure 110/65 O2 Sat by Pulse 99 Oximetry Medical Decision Making - Medical Decision Making This is a 28-year-old female who presents to the emergency department with chief complaint of right foot injury. There is tenderness and ecchymosis at the first MTP joint. X-ray right foot was obtained which reveals no acute fractures. Patient likely suffering from a sprain. Recommended following up for repeat x-rays if pain persists beyond 7-10 days. Recommended rest, ice and Tylenol or ibuprofen as needed. Patient's vital signs are stable and she is in no acute distress. She will be discharged home at this time. She is in agreement with plan and voices understanding. All questions were answered. - Radiology Data Radiology results: report reviewed X-ray right foot impression: Negative right foot exam. Disposition Clinical Impression: Foot sprain Disposition: HOME SELF-CARE Condition: Good Instructions: Foot Sprain (ED) Additional Instructions: Please follow up for repeat x-rays with primary care provider or orthopedics if pain persists beyond 7-10 days. Please follow up with primary care provider within 1-2 days. Return to emergency department if symptoms should worsen or any concerns arise. Is patient prescribed a controlled substance at d/c from ED?: No Referrals: None,Stated [Primary Care Provider] - 1-2 days Ziggy Marshall DO [Doctor of Osteopathic Medicine] - 1-2 days Time of Disposition: 19:17
--- NOTE | 2018-08-02 19:14 | XR ---
EXAMINATION TYPE: XR foot complete RT DATE OF EXAM: 08/02/2018 COMPARISON: NONE HISTORY: Right foot pain TECHNIQUE: 3 views FINDINGS: Metatarsals are intact. I see no fracture nor dislocation. Joint spaces are normal. There a re no erosions. IMPRESSION: Negative right foot exam.
== END 2018-08-02 19:22 | disposition home or self-care (01) ==
LOC: EC 18:23
DX: S93.601A Unspecified sprain of right foot, initial encounter (principal); S90.111A Contusion of right great toe without damage to nail, initial encounter; Z91.040 Latex allergy status; W22.8XXA Striking against or struck by other objects, initial encounter; Y93.89 Activity, other specified; Y92.009 Unspecified place in unspecified non-institutional (private) residence as the place of occurrence of the external cause
CPT/HCPCS: 99283

== ENCOUNTER 2018-08-15 04:29 | Emergency (ER) | payer OTHER ==
--- NOTE | 2018-08-15 05:16 | ED ---
Female Urogenital HPI - General Source: patient Mode of arrival: ambulatory Limitations: no limitations - History of Present Illness MD Complaint: other Onset/Timin -: hour(s) Radiation: non-radiating Quality: aching Consistency: constant Improves with: none Worsens with: none Patient : No <MichaelIsacc - Last Filed: 08/15/18 06:47> <Elmre Dickens - Last Filed: 08/15/18 08:19> - General Chief complaint: Urogenital Stated complaint: ABD PAIN Time Seen by Provider: 08/15/18 04:45 - History of Present Illness Initial comments: Patient is 28-year-old woman who presents to have evaluation. She states that she had urinated this morning before she was going to go to work. She states that when she wiped, she noticed what looked like to moderately large sized pieces of what appeared to be skin on the tissue. The patient states she also has been having some generalized abdominal cramping type pain that is been going on since she had this episode urination. (Isacc Rodriguez) - Related Data Home Medications Medication Instructions Recorded Confirmed No Known Home Medications 05/06/18 08/02/18 Allergies Allergy/AdvReac Type Severity Reaction Status Date / Time latex Allergy Skin Verified 08/15/18 08:18 Irritation Review of Systems ROS Other: All systems not noted in ROS Statement are negative. Constitutional: Denies: fever, chills Respiratory: Denies: cough, dyspnea Cardiovascular: Denies: chest pain, palpitations, edema Gastrointestinal: Reports: abdominal pain, nausea. Denies: vomiting, diarrhea, constipation, melena Genitourinary: Reports: as per HPI. Denies: dysuria, hematuria, abnormal menses Musculoskeletal: Denies: back pain Skin: Denies: rash <Isacc Rodriguez - Last Filed: 08/15/18 06:47> ROS Other: All systems not noted in ROS Statement are negative. <Elmer Dickens - Last Filed: 08/15/18 08:19> ROS Statement: Those systems with pertinent positive or pertinent negative responses have been documented in the HPI. Past Medical History Past Medical History: No Reported History Additional Past Medical History / Comment(s): Obstetric history: O+ abs neg, Rub nonimmune, Hep B neg, HIV NR. EDC by a 6 week US. 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 annualar pancreas History of Any Multi-Drug Resistant Organisms: None Reported Past Surgical History: Cholecystectomy, Orthopedic Surgery Additional Past Surgical History / Comment(s): Laparoscopy and four knee surgeries Past Anesthesia/Blood Transfusion Reactions: No Reported Reaction Past Psychological History: Anxiety Smoking Status: Never smoker Past Alcohol Use History: None Reported Past Drug Use History: None Reported - Past Family History Father Family Medical History: Diabetes Mellitus, Hypertension <Isacc Rodriguez - Last Filed: 08/15/18 06:47> General Exam Limitations: no limitations General appearance: alert, in no apparent distress Head exam: Present: atraumatic, normocephalic Eye exam: Present: normal appearance. Absent: scleral icterus, conjunctival injection ENT exam: Present: normal oropharynx Cardiovascular Exam: Present: regular rate, normal rhythm, normal heart sounds. Absent: systolic murmur, diastolic murmur, rubs, gallop GI/Abdominal exam: Present: soft. Absent: distended, tenderness, guarding, rebound, rigid, mass, pulsatile mass, hernia External exam: Present: normal external exam Speculum exam: Present: erythema, other (Trace of dark blood present). Absent: cervical discharge, foreign body, tissue, laceration By manual exam: Present: uterine tenderness Extremities exam: Present: normal inspection, normal capillary refill. Absent: pedal edema, calf tenderness Back exam: Present: normal inspection. Absent: CVA tenderness (R), CVA tenderness (L) Neurological exam: Present: alert, normal gait Skin exam: Present: warm, dry, intact, normal color. Absent: rash <Isacc Rodriguez - Last Filed: 08/15/18 06:47> Vital Signs 08/15/18 04:32 Temperature 98.3 F Pulse Rate 87 Respiratory 16 Rate Blood Pressure 112/65 O2 Sat by Pulse 100 Oximetry Medical Decision Making - Lab Data Result diagrams: 08/15/18 05:02 08/15/18 05:02 <Isacc Rodriguez - Last Filed: 08/15/18 06:47> - Lab Data Result diagrams: 08/15/18 05:02 08/15/18 05:02 <Elmer Dickens - Last Filed: 08/15/18 08:19> - Medical Decision Making Ultrasound showed no acute abnormality. (Elmer Dickens) - Lab Data Lab Results 08/15/18 08/15/18 08/15/18 Range/Units 05:00 05:00 05:02 WBC (3.8-10.6) k/uL RBC (3.80-5.40) m/uL Hgb (11.4-16.0) gm/dL Hct (34.0-46.0) % MCV (80.0-100.0) fL MCH (25.0-35.0) pg MCHC (31.0-37.0) g/dL RDW (11.5-15.5) % Plt Count (150-450) k/uL Neutrophils % % Lymphocytes % % Monocytes % % Eosinophils % % Basophils % % Neutrophils # (1.3-7.7) k/uL Lymphocytes # (1.0-4.8) k/uL Monocytes # (0-1.0) k/uL Eosinophils # (0-0.7) k/uL Basophils # (0-0.2) k/uL Sodium 140 (137-145) mmol/L Potassium 3.9 (3.5-5.1) mmol/L Chloride 109 H (98-107) mmol/L Carbon Dioxide 22 (22-30) mmol/L Anion Gap 9 mmol/L BUN 12 (7-17) mg/dL Creatinine 0.74 (0.52-1.04) mg/dL Est GFR (CKD-EPI)AfAm >90 (>60 ml/min/1.73 sqM) Est GFR (CKD-EPI)NonAf >90 (>60 ml/min/1.73 sqM) Glucose 90 (74-99) mg/dL Calcium 9.0 (8.4-10.2) mg/dL Total Bilirubin 0.3 (0.2-1.3) mg/dL AST 13 L (14-36) U/L ALT 22 (9-52) U/L Alkaline Phosphatase 46 (38-126) U/L Total Protein 6.7 (6.3-8.2) g/dL Albumin 3.4 L (3.5-5.0) g/dL Amylase 73 (30-110) U/L Lipase 135 (23-300) U/L Urine Color Yellow Urine Appearance Clear (Clear) Urine pH 5.5 (5.0-8.0) Ur Specific [place] 1.022 (1.001-1.035) Urine Protein Trace H (Negative) Urine Glucose (UA) Negative (Negative) Urine Ketones Negative (Negative) Urine Blood Small H (Negative) Urine Nitrite Negative (Negative) Urine Bilirubin Negative (Negative) Urine Urobilinogen <2.0 (<2.0) mg/dL Ur Leukocyte Esterase Negative (Negative) Urine RBC 7 H (0-5) /hpf Urine WBC 4 (0-5) /hpf Ur Squamous Epith Cells 1 (0-4) /hpf Urine Mucus Occasional H (None) /hpf Urine HCG, Qual Not Detected (Not Detectd) 08/15/18 Range/Units 05:02 WBC 10.4 (3.8-10.6) k/uL RBC 4.87 (3.80-5.40) m/uL Hgb 13.9 (11.4-16.0) gm/dL Hct 42.2 (34.0-46.0) % MCV 86.7 (80.0-100.0) fL MCH 28.4 (25.0-35.0) pg MCHC 32.8 (31.0-37.0) g/dL RDW 13.6 (11.5-15.5) % Plt Count 335 (150-450) k/uL Neutrophils % 71 % Lymphocytes % 23 % Monocytes % 4 % Eosinophils % 1 % Basophils % 0 % Neutrophils # 7.3 (1.3-7.7) k/uL Lymphocytes # 2.4 (1.0-4.8) k/uL Monocytes # 0.5 (0-1.0) k/uL Eosinophils # 0.1 (0-0.7) k/uL Basophils # 0.0 (0-0.2) k/uL Sodium (137-145) mmol/L Potassium (3.5-5.1) mmol/L Chloride (98-107) mmol/L Carbon Dioxide (22-30) mmol/L Anion Gap mmol/L BUN (7-17) mg/dL Creatinine (0.52-1.04) mg/dL Est GFR (CKD-EPI)AfAm (>60 ml/min/1.73 sqM) Est GFR (CKD-EPI)NonAf (>60 ml/min/1.73 sqM) Glucose (74-99) mg/dL Calcium (8.4-10.2) mg/dL Total Bilirubin (0.2-1.3) mg/dL AST (14-36) U/L ALT (9-52) U/L Alkaline Phosphatase (38-126) U/L Total Protein (6.3-8.2) g/dL Albumin (3.5-5.0) g/dL Amylase (30-110) U/L Lipase (23-300) U/L Urine Color Urine Appearance (Clear) Urine pH (5.0-8.0) Ur Specific [place] (1.001-1.035) Urine Protein (Negative) Urine Glucose (UA) (Negative) Urine Ketones (Negative) Urine Blood (Negative) Urine Nitrite (Negative) Urine Bilirubin (Negative) Urine Urobilinogen (<2.0) mg/dL Ur Leukocyte Esterase (Negative) Urine RBC (0-5) /hpf Urine WBC (0-5) /hpf Ur Squamous Epith Cells (0-4) /hpf Urine Mucus (None) /hpf Urine HCG, Qual (Not Detectd) Disposition <Isacc Rodriguez - Last Filed: 08/15/18 06:47> Is patient prescribed a controlled substance at d/c from ED?: No <Elmer Dickens - Last Filed: 08/15/18 08:19> Clinical Impression: Vaginal discharge Disposition: HOME SELF-CARE Condition: Good Instructions: Vaginal Discharge (ED) Referrals: None,Stated [Primary Care Provider] - 1-2 days
[2018-08-15 06:27] LABS: Appearance,Urine Clear (Clear); Bilirubin,Urine Negative (Negative); Blood,Urine Small (Negative); Color,Urine Yellow; Glucose,Urine (UA) Negative (Negative); Ketones,Urine Negative (Negative); Leukocyte Esterase,Urine Negative (Negative); Mucus,Urine Occasional /hpf; Nitrite,Urine Negative (Negative); PH, Urine 5.5 (5.0-8.0); Protein,Urine Trace (Negative); RBC,Urine 7 /hpf (0-5); Specific Gravity,Urine 1.022 (1.001-1.035); Squamous Epithelial Cell,Urine 1 /hpf (0-4); Urobilinogen,Urine <2.0 mg/dL (<2.0); WBC,Urine 4 /hpf (0-5)
[2018-08-15 06:28] LABS: Basophils % (A) 0 %; Eosinophils # (A) 0.1 k/uL (0-0.7); Eosinophils % (A) 1 %; HCT 42.2 % (34.0-46.0); HGB 13.9 gm/dL (11.4-16.0); Lymphocytes # (A) 2.4 k/uL (1.0-4.8); Lymphocytes % (A) 23 %; MCH 28.4 pg (25.0-35.0); MCHC 32.8 g/dL (31.0-37.0); MCV 86.7 fL (80.0-100.0); Monocytes # (A) 0.5 k/uL (0-1.0); Monocytes % (A) 4 %; Neutrophils # (A) 7.3 k/uL (1.3-7.7); Neutrophils % (A) 71 %; Platelet Count 335 k/uL (150-450); RBC 4.87 m/uL (3.80-5.40); RDW 13.6 % (11.5-15.5); WBC 10.4 k/uL (3.8-10.6)
[2018-08-15 06:33] LABS: ALT 22 U/L (9-52); AST 13 U/L (14-36); Albumin 3.4 g/dL (3.5-5.0); Alkaline Phosphatase 46 U/L (38-126); Amylase 73 U/L (30-110); Anion Gap 9 mmol/L; Blood Urea Nitrogen 12 mg/dL (7-17); Carbon Dioxide 22 mmol/L (22-30); Chloride 109 mmol/L (98-107); Glucose 90 mg/dL (74-99); Lipase 135 U/L (23-300); Potassium 3.9 mmol/L (3.5-5.1); Sodium 140 mmol/L (137-145); Total Bilirubin 0.3 mg/dL (0.2-1.3); Total Protein 6.7 g/dL (6.3-8.2)
--- NOTE | 2018-08-15 08:12 | US ---
EXAMINATION TYPE: US transvaginal DATE OF EXAM: 08/15/2018 COMPARISON: CLINICAL HISTORY: Pain. Patient states when she wiped this morning, tissue was seen. During her pelv ic exam, she was a bit tender. TECHNIQUE: Transvaginal (TV). Date of LMP: 08/14/2018, EXAM MEASUREMENTS: Uterus: 6.9 x 4.8 x 4.0 cm Endometrial Stripe: 0.3 cm Right Ovary: 3.1 x 1.7 x 1.6 cm Left Ovary: 3.1 x 1.1 x 1.7 cm 1. Uterus: Retroverted wnl 2. Endometrium: wnl 3. Right Ovary: wnl 4. Left Ovary: wnl Spectral, color and waveform doppler imaging shows good arterial and venous flow within the ovaries ; there is no evidence for ovarian torsion. 5. Bilateral Adnexa: wnl 6. Posterior cul-de-sac: no free fluid Cervix- wnl IMPRESSION: 1. No significant abnormality seen.
[2018-08-15 08:44] VITALS: BP 126/70; PULSE 80; RESP 18; TEMP 98
[2018-08-16 14:16] LABS: N. gonorrhoeae,PCR Negative (Neg,Equiv); Neisseria Source Vagina
[2018-08-16 14:50] LABS: C. trachomatis,PCR Negative (Neg,Equiv); Chlamydia trachomatis Source Vagina
== END 2018-08-15 08:44 | disposition home or self-care (01) ==
LOC: EC 04:29
DX: N89.8 Other specified noninflammatory disorders of vagina (principal); R10.84 Generalized abdominal pain; Z90.49 Acquired absence of other specified parts of digestive tract; Z98.890 Other specified postprocedural states; Z91.040 Latex allergy status
CPT/HCPCS: 36415; 76830; 80053; 81001; 81025; 82150; 83690; 85025; 87491; 87591; 87661; 93975; 99284

== ENCOUNTER → 2018-09-13 | Outpatient (CLI) | payer OTHER ==
--- NOTE | 2018-09-13 09:06 | CT ---
EXAMINATION TYPE: CT brain wo/w con DATE OF EXAM: 09/13/2018 COMPARISON: None HISTORY: Headaches CT DLP: 2184mGycm CONTRAST: CT scan of the head is performed without and with IV Contrast, patient injected with 100 ml mL of Iso kasi 300. Unenhanced followed by contrast enhanced CT of the brain is submitted for evaluation. The ventricles are midline. There is no evidence for intracranial hemorrhage or extra-axial collection. No mass e ffects are identified. Visualized bony calvarium is intact. Contrast is administered and no enhanci ng lesions are detected. No pathologic enhancement is identified. If symptoms persist consider MRI. IMPRESSION: 1. No intracranial abnormality identified at this time
== END ==
LOC: RADCTMAIN 08:19
PROVIDERS: ATTEND Family Medicine
DX: R51 Headache (principal)
CPT/HCPCS: 70470; Q9967

== ENCOUNTER 2024-07-07 09:30 | Day surgery (SDC) | payer OTHER ==
[~2024-07-07 09:30] MED LIST: LACTATED RINGERS 1,000 ML BAG ONE; LIDOCAINE 1% INJ 10MG/ML (20 ML MDV) ONE; PROPOFOL 10 MG/ML 20 ML VIAL IV ONE
--- NOTE | 2024-07-07 15:58 | PCN ---
PROCEDURE NOTE REQUESTING PHYSICIAN: Dr. Heart. BRIEF HISTORY: The patient is a 34-year-old pleasant white female scheduled for an elective upper endoscopy as part of evaluation of longstanding history of GERD. She has been on omeprazole 40 mg daily as well as Pepcid 40 mg at bedtime and continues to remain symptomatic and she is scheduled for an upper endoscopy to evaluate further. PROCEDURE PERFORMED: EGD with biopsy. PREOPERATIVE DIAGNOSIS: Longstanding history of GERD refractory to aggressive acid suppressive therapy. ANESTHESIA: IV sedation per Anesthesia. DESCRIPTION OF PROCEDURE: After informed consent was obtained from the patient, she was brought in to the endoscopy unit. IV conscious sedation was administered by Anesthesia under continuous monitoring. Initially, the Olympus CF-180 video endoscope was inserted in the mouth and esophagus intubated without any difficulty and was gradually advanced into the stomach and duodenum was carefully examined. Bulb and the second part of the duodenum appeared normal. Scope at this time was withdrawn through the stomach, adequately insufflated with air and upon careful examination mucosa of the antrum had patchy areas of erythema consistent with gastritis and biopsies for H pylori were done. Body of the stomach appeared normal. On retroflexion, cardia and fundus appeared normal. Scope was then withdrawn through the esophagus, the GE junction was located 39 cm from the incisors. It appeared regular with no erythema, erosions, or ulcerations. The entire length of the esophagus appeared normal. Biopsies were done from the distal esophagus. The patient tolerated the procedure well. IMPRESSION: 1. Normal-appearing esophagus with no evidence of esophagitis or esophageal stricture. 2. Mild antral gastritis. RECOMMENDATIONS: Findings of this examination were discussed with the patient as well as the family. She was advised to increase omeprazole to 40 mg twice daily half hour before breakfast and dinnertime and follow anti-reflux measures and continue with Pepcid 40 mg at bedtime and follow up in the office in 2 to 3 weeks. MMODL / IJN: [id number] /
== END 2024-07-07 10:38 ==
LOC: ORWHC2ENDO 09:30
PROVIDERS: ATTEND Internal Medicine Gastroenterology
DX: Z12.11 Encounter for screening for malignant neoplasm of colon
CPT/HCPCS: 43239; 81025; 88305

== ENCOUNTER 2024-07-28 13:44 | Emergency (ER) | payer OTHER ==
--- NOTE | 2024-07-28 14:28 | ED ---
Abdominal Pain HPI - General Stated Complaint: Abd pain Time Seen by Provider: 07/28/24 14:02 Source: patient, RN notes reviewed - History of Present Illness Initial Comments: 34-year-old female presents emergency department chief complaint of right-sided abdominal pain. Patient follows with Dr. Claros with complaint of right upper quadrant pain over the last few weeks that has progressed to radiation into the RLQ over the last few fays. On previous upper GI imaging concerned that patient's appendix was not visualized. Patient was advised her primary care provider to report to the emergency department for further evaluation. Endorses nausea, diarrhea, and anorexia over the past few weeks. denies fevers, chills, hememesis, hematochezia, or urinary symptoms. History of cholecystectomy. - Related Data Home Medications Medication Instructions Recorded Confirmed Ortho Evra 1 patch TRANSDERM Q21D 08/15/18 08/15/18 Allergies Allergy/AdvReac Type Severity Reaction Status Date / Time latex Allergy Skin Verified 08/15/18 08:18 Irritation Review of Systems ROS Statement: Those systems with pertinent positive or pertinent negative responses have been documented in the HPI. ROS Other: All systems not noted in ROS Statement are negative. Past Medical History Past Medical History: No Reported History Additional Past Medical History / Comment(s): Obstetric history: O+ abs neg, Rub nonimmune, Hep B neg, HIV NR. EDC by a 6 week US. 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 annualar pancreas History of Any Multi-Drug Resistant Organisms: None Reported Past Surgical History: Cholecystectomy, Orthopedic Surgery Additional Past Surgical History / Comment(s): Laparoscopy and four knee surgeries Past Anesthesia/Blood Transfusion Reactions: No Reported Reaction Past Psychological History: Anxiety Past Alcohol Use History: None Reported Past Drug Use History: None Reported - Past Family History Father Family Medical History: Diabetes Mellitus, Hypertension General Exam - General Exam Comments Initial Comments: Visual Physical Exam Vital signs reviewed General: Well-appearing, nontoxic, no acute distress. Head: Normocephalic, atraumatic Eyes: PERRLA, EOMI ENT: Airway patent Chest: Nonlabored breathing Skin: No visual rash, normal skin tone Neuro: Alert and oriented 3 Musculoskeletal: No gross abnormalities General appearance: alert, in no apparent distress Neck exam: Present: normal inspection. Absent: tenderness, meningismus, lymphadenopathy Respiratory exam: Present: normal lung sounds bilaterally. Absent: respiratory distress, wheezes, rales, rhonchi, stridor Cardiovascular Exam: Present: regular rate, normal rhythm, normal heart sounds. Absent: systolic murmur, diastolic murmur, rubs, gallop, clicks GI/Abdominal exam: Present: soft, tenderness, rebound (RLQ), normal bowel sounds, other (+ rovsing's sign). Absent: distended Extremities exam: Present: normal inspection, full ROM, normal capillary refill. Absent: tenderness, pedal edema, joint swelling, calf tenderness Back exam: Present: normal inspection Neurological exam: Present: alert, oriented X3, CN II-XII intact Skin exam: Present: warm, dry, intact, normal color. Absent: rash Course Vital Signs 07/28/24 14:42 Temperature 98.1 F Pulse Rate 115 H Respiratory 20 Rate Blood Pressure 151/102 O2 Sat by Pulse 99 Oximetry Medical Decision Making - Medical Decision Making Was pt. sent in by a medical professional or institution (, PA, BIGHT MAKER, urgent care, hospital, or usp...) When possible be specific @ -No Did you speak to anyone other than the patient for history (EMS, parent, family, police, friend...)? What history was obtained from this source @ -No Did you review nursing and triage notes (agree or disagree)? Why? @ -I reviewed and agree with nursing and triage notes Were old charts reviewed (outside hosp., previous admission, EMS record, old EKG, old radiological studies, urgent care reports/EKG's, usp records)? Report findings @ -No old charts were reviewed Differential Diagnosis (chest pain, altered mental status, abdominal pain women, abdominal pain men, vaginal bleeding, weakness, fever, dyspnea, syncope, headache, dizziness, GI bleed, back pain, seizure, CVA, palpatations, mental health, musculoskeletal)? @ -Differential Abdominal Pain Women: Appendicitis, Cholecystitis, diverticulosis, ischemic bowel, pancreatitis, hepatitis, UTI, gastroenteritis, AAA, incarcerated hernia, bowel obstruction, constipation, inflammatory bowel, hepatitis, peptic ulcer disease, splenic infarction, perforated viscus, vulvitis, ovarian torsion, PID, kidney stone, placenta abruption, this is not meant to be an all-inclusive list EKG interpreted by me (3pts min.). @ -None X-rays interpreted by me (1pt min.). @ -None done CT interpreted by me (1pt min.). @ -CT of the abdomen and pelvis with contrast reveals limited evaluation of the uterus and adnexa, no evidence of dilation or bowel obstruction of the bowels, no focal mass or organomegaly Goley involving the liver, pancreas spleen or adr enal glands U/S interpreted by me (1pt. min.). @ -None done What testing was considered but not performed or refused? (CT, X-rays, U/S, labs)? Why? @ -None What meds were considered but not given or refused? Why? @ -None Did you discuss the management of the patient with other professionals (professionals i.e. , PA, BIGHT MAKER, lab, RT, psych nurse, social sciences instructor, government program manager, teacher, youth officer, continuous pillowcase cutter)? Give summary @ -No Was smoking cessation discussed for >3mins.? @ -No Was critical care preformed (if so, how long)? @ -No Were there social determinants of health that impacted care today? How? (Homelessness, low income, unemployed, alcoholism, drug addiction, transportation, low edu. Level, literacy, decrease access to med. care, [facility], rehab)? @ -No Was there de-escalation of care discussed even if they declined (Discuss DNR or withdrawal of care, Hospice)? DNR status @ -No What co-morbidities impacted this encounter? (DM, HTN, Smoking, COPD, CAD, Cancer, CVA, ARF, Chemo, Hep., AIDS, mental health diagnosis, sleep apnea, morbid obesity)? @ -None Was patient admitted / discharged? Hospital course, mention meds given and route, prescriptions, significant lab abnormalities, going to OR and other pertinent info. @34-year-old female with abdominal pain. On examination patient is resting comfortably no signs of acute distress. Patient is symptomatically treated with fluids and pain medication pending results of labs. On examination patient noted to have positive Rovsing sign and right lower quadrant tenderness concerning for acute appendicitis. CT imaging ordered. Patient did agree with this plan. Urinalysis negative for signs of infection, hCG negative, mild leukocytosis of 11.2. CMP within normal limits, lactic acid 1.4, amylase lipase within normal limits. CT negative for acute process. Discussed with patient at bedside findings concerning for potential limited valuation of the uterus and adenexa and patient is in agreement deferring ultrasound imaging at this time. Patient states that she will follow-up with her GI specialist for further evaluation. All questions answered at bedside and strict return parameters rain the patient she is verbalized understanding. Undiagnosed new problem with uncertain prognosis? @ -No Drug Therapy requiring intensive monitoring for toxicity (Heparin, Nitro, Insulin, Cardizem)? @ -No Were any procedures done? @ -No Diagnosis/symptom? @ -Abdominal pain Acute, or Chronic, or Acute on Chronic? @ -Acute on chronic Uncomplicated (without systemic symptoms) or Complicated (systemic symptoms)? @ -Uncomplicated Side effects of treatment? @ -No Exacerbation, Progression, or Severe Exacerbation? @ -No Poses a threat to life or bodily function? How? (Chest pain, [place], [place], pneumonia, PE, COPD, DKA, ARF, appy, cholecystitis, CVA, Diverticulitis, Homicidal, Suicidal, threat to staff... and all critical care pts) @ -No - Lab Data Result diagrams: 07/28/24 15:07 07/28/24 15:07 Lab Results 07/28/24 07/28/24 07/28/24 Range/Units 14:30 14:30 15:07 WBC 11.2 H (3.8-10.6) k/uL RBC 4.47 (3.80-5.40) m/uL Hgb 12.6 (11.4-16.0) gm/dL Hct 38.0 (34.0-46.0) % MCV 84.9 (80.0-100.0) fL MCH 28.2 (25.0-35.0) pg MCHC 33.2 (31.0-37.0) g/dL RDW 13.6 (11.5-15.5) % Plt Count 430 (150-450) k/uL MPV 7.8 Neutrophils % 68 % Lymphocytes % 26 % Monocytes % 4 % Eosinophils % 0 % Basophils % 0 % Neutrophils # 7.6 (1.3-7.7) k/uL Lymphocytes # 3.0 (1.0-4.8) k/uL Monocytes # 0.5 (0-1.0) k/uL Eosinophils # 0.0 (0-0.7) k/uL Basophils # 0.0 (0-0.2) k/uL Sodium (137-145) mmol/L Potassium (3.5-5.1) mmol/L Chloride (98-107) mmol/L Carbon Dioxide (22-30) mmol/L Anion Gap mmol/L BUN (7-17) mg/dL Creatinine (0.52-1.04) mg/dL Est GFR (CKD-EPI)AfAm (>60 ml/min/1.73 sqM) Est GFR (CKD-EPI)NonAf (>60 ml/min/1.73 sqM) Glucose (74-99) mg/dL Plasma Lactic Acid Juan (0.7-2.0) mmol/L Calcium (8.4-10.2) mg/dL Total Bilirubin (0.2-1.3) mg/dL AST (14-36) U/L ALT (4-34) U/L Alkaline Phosphatase (38-126) U/L Total Protein (6.3-8.2) g/dL Albumin (3.5-5.0) g/dL Amylase (30-110) U/L Lipase (23-300) U/L Urine Color Colorless Urine Appearance Cloudy H (Clear) Urine pH 7.5 (5.0-8.0) Ur Specific [place] 1.013 (1.001-1.035) Urine Protein Negative (Negative) Urine Glucose (UA) Negative (Negative) Urine Ketones Negative (Negative) Urine Blood Negative (Negative) Urine Nitrite Negative (Negative) Urine Bilirubin Negative (Negative) Urine Urobilinogen <2.0 (<2.0) mg/dL Ur Leukocyte Esterase Negative (Negative) Urine WBC 3 (0-5) /hpf Ur Squamous Epith Cells 2 (0-4) /hpf Urine Bacteria Rare H (None) /hpf Urine HCG, Qual Not Detected (Not Detectd) 07/28/24 07/28/24 Range/Units 15:07 15:07 WBC (3.8-10.6) k/uL RBC (3.80-5.40) m/uL Hgb (11.4-16.0) gm/dL Hct (34.0-46.0) % MCV (80.0-100.0) fL MCH (25.0-35.0) pg MCHC (31.0-37.0) g/dL RDW (11.5-15.5) % Plt Count (150-450) k/uL MPV Neutrophils % % Lymphocytes % % Monocytes % % Eosinophils % % Basophils % % Neutrophils # (1.3-7.7) k/uL Lymphocytes # (1.0-4.8) k/uL Monocytes # (0-1.0) k/uL Eosinophils # (0-0.7) k/uL Basophils # (0-0.2) k/uL Sodium 139 (137-145) mmol/L Potassium 3.7 (3.5-5.1) mmol/L Chloride 106 (98-107) mmol/L Carbon Dioxide 22 (22-30) mmol/L Anion Gap 11 mmol/L BUN 10 (7-17) mg/dL Creatinine 0.79 (0.52-1.04) mg/dL Est GFR (CKD-EPI)AfAm >90 (>60 ml/min/1.73 sqM) Est GFR (CKD-EPI)NonAf >90 (>60 ml/min/1.73 sqM) Glucose 98 (74-99) mg/dL Plasma Lactic Acid Juan 1.4 (0.7-2.0) mmol/L Calcium 10.0 (8.4-10.2) mg/dL Total Bilirubin 0.7 (0.2-1.3) mg/dL AST 21 (14-36) U/L ALT 23 (4-34) U/L Alkaline Phosphatase 80 (38-126) U/L Total Protein 7.3 (6.3-8.2) g/dL Albumin 4.1 (3.5-5.0) g/dL Amylase 55 (30-110) U/L Lipase 80 (23-300) U/L Urine Color Urine Appearance (Clear) Urine pH (5.0-8.0) Ur Specific [place] (1.001-1.035) Urine Protein (Negative) Urine Glucose (UA) (Negative) Urine Ketones (Negative) Urine Blood (Negative) Urine Nitrite (Negative) Urine Bilirubin (Negative) Urine Urobilinogen (<2.0) mg/dL Ur Leukocyte Esterase (Negative) Urine WBC (0-5) /hpf Ur Squamous Epith Cells (0-4) /hpf Urine Bacteria (None) /hpf Urine HCG, Qual (Not Detectd) Disposition Clinical Impression: Abdominal pain Disposition: HOME SELF-CARE Condition: Good Instructions (If sedation given, give patient instructions): Abdominal Pain (ED) Additional Instructions: Return to the emergency department any new or worsening symptoms recommend follow-up with GI specialist for further evaluation. Is patient prescribed a controlled substance at d/c from ED?: No Referrals: Rick Heart MD [Primary Care Provider] - 1-2 days Time of Disposition: 15:54
[2024-07-28 14:46] VITALS: RESP 20; TEMP 98.1
[2024-07-28 15:12] LABS: Appearance,Urine Cloudy (Clear); Bacteria,Urine Rare /hpf; Bilirubin,Urine Negative (Negative); Blood,Urine Negative (Negative); Color,Urine Colorless; Glucose,Urine (UA) Negative (Negative); Ketones,Urine Negative (Negative); Leukocyte Esterase,Urine Negative (Negative); Nitrite,Urine Negative (Negative); PH, Urine 7.5 (5.0-8.0); Protein,Urine Negative (Negative); Specific Gravity,Urine 1.013 (1.001-1.035); Squamous Epithelial Cell,Urine 2 /hpf (0-4); Urobilinogen,Urine <2.0 mg/dL (<2.0); WBC,Urine 3 /hpf (0-5)
[2024-07-28] MEDS ORDERED: MORPHINE SULFATE 4 MG/ML SYRINGE IVP STA (15:14)
[2024-07-28] MEDS ORDERED: SODIUM CHLORIDE 0.9% 1,000 ML IV STA (15:14)
[2024-07-28 15:17] LABS: Basophils % (A) 0 %; Eosinophils % (A) 0 %; HGB 12.6 gm/dL (11.4-16.0); Lymphocytes % (A) 26 %; MCH 28.2 pg (25.0-35.0); MCHC 33.2 g/dL (31.0-37.0); MCV 84.9 fL (80.0-100.0); Mean Platelet Volume 7.8; Monocytes # (A) 0.5 k/uL (0-1.0); Monocytes % (A) 4 %; Neutrophils # (A) 7.6 k/uL (1.3-7.7); Neutrophils % (A) 68 %; Platelet Count 430 k/uL (150-450); RBC 4.47 m/uL (3.80-5.40); RDW 13.6 % (11.5-15.5); WBC 11.2 k/uL (3.8-10.6)
[2024-07-28 15:35] LABS: ALT 23 U/L (4-34); AST 21 U/L (14-36); African American GFR (CKD) >90 (>60 ml/min/1.73 sqM); Albumin 4.1 g/dL (3.5-5.0); Alkaline Phosphatase 80 U/L (38-126); Amylase 55 U/L (30-110); Anion Gap 11 mmol/L; Blood Urea Nitrogen 10 mg/dL (7-17); Carbon Dioxide 22 mmol/L (22-30); Chloride 106 mmol/L (98-107); Glucose 98 mg/dL (74-99); Lipase 80 U/L (23-300); Non-African American GFR(CKD) >90 (>60 ml/min/1.73 sqM); Potassium 3.7 mmol/L (3.5-5.1); Sodium 139 mmol/L (137-145); Total Bilirubin 0.7 mg/dL (0.2-1.3); Total Protein 7.3 g/dL (6.3-8.2)
--- NOTE | 2024-07-28 15:45 | CT ---
EXAMINATION TYPE: CT abdomen pelvis w con DATE OF EXAM: 07/28/2024 COMPARISON: 12/23/2016 HISTORY: RLQ abdominal pain, N/V. CT DLP: 1157.4 mGycm Automated exposure control for dose reduction was used. TECHNIQUE: Helical acquisition of images was performed from the lung bases through the pelvis. CONTRAST: Performed without Oral Contrast and with IV Contrast, patient injected with 100 ml mL of Isovue 300. FINDINGS: The lung bases are clear. There is surgical absence of the gallbladder. There is no biliary ductal dilatation. There is no focal mass or organomegaly involving the liver, pancreas, spleen or adrenal glands. There is no solid renal mass or hydronephrosis and there is homogeneous contrast enhancement of the r enal parenchyma. The caliber the abdominal aorta is normal is no retroperitoneal adenopathy or hemorr felicity. The bowel loops are normal in caliber and there is no evidence of dilatation or obstruction. No infla mmatory changes are identified in the bowel wall or mesentery. There is no free intraperitoneal air or fluid. Evaluation of the pelvis is limited due to streak artifact from dense barium within a cecum. Possibil ity of adnexal mass or uterine abnormality excluded. Pelvic ultrasound might be useful for further ev aluation. The osseous structures and soft tissues are intact. IMPRESSION: Evaluation of the uterus and adnexa are limited as described above. Recommend pelvic ultrasound if cl inically indicated. No other significant abnormality seen.
[2024-07-28 17:17] VITALS: BP 156/99; PULSE 119
== END 2024-07-28 17:30 | disposition home or self-care (01) ==
LOC: EC 13:44
DX: R10.9 Unspecified abdominal pain
CPT/HCPCS: 36415; 74177; 80053; 81001; 81025; 82150; 83605; 83690; 85025; 99284

== ENCOUNTER 2025-03-29 06:53 | Day surgery (SDC) | payer OTHER ==
--- NOTE | 2025-03-29 06:47 | P.GSHP ---
History of Present Illness H&P Date: 03/29/25 CHIEF COMPLAINT: Right lower quadrant abdominal pain HISTORY OF PRESENT ILLNESS: The patient is a 35-year-old female who presents right lower quadrant abdominal pain that is crampy dull ache in nature for over 6 months. Patient has pre- existing history of endometriosis. Patient has had multiple diagnostic studies including interventions. As she has persistent right lower quadrant abdominal pain, appendectomy described. PAST MEDICAL HISTORY: See list and reviewed PAST SURGICAL HISTORY: See list and reviewed CURRENT MEDICATIONS: See list and reviewed ALLERGIES: See list and reviewed SOCIAL HISTORY: See list and reviewed FAMILY HISTORY: See list and reviewed REVIEW OF ORGAN SYSTEMS: CONSTITUTIONAL: Present fever, no chills. Denies recent weight loss. Morbid obesity, BMI 40. HEENT: Denies any trouble with vision, hearing or nosebleeds. No difficulty swallowing. LYMPHATIC: The patient denies any lumps and bumps around the neck. ENDOCRINE: Denies any thyroid disorders. Denies any blood sugar glucose intolerance. RESPIRATORY: Denies shortness of breath including chronic cough. CARDIOVASCULAR: Denies history of chest pain with exertion. GASTROINTESTINAL: Denies regurgitation of bile at night as well as intermittent nausea. No blood in stools. GENITOURINARY: Denies any blood in urine or increased urinary frequency. MUSCULOSKELETAL: Denies current joint arthritis. NEUROLOGIC: Denies any numbness or tingling along the distal extremities. No seizure disorders or headaches. PSYCHIATRIC: Denies any depression or suicidal ideation. HEMATOLOGIC: Denies any abnormal bleeding or bruising. PHYSICAL EXAMINATION: VITALS: Reviewed. GENERAL: Well-developed and in no acute distress. Pleasant. HEENT: No sclera icterus. Extraocular movements grossly intact. Moist buccal mucosa. Head is atraumatic, normocephalic. Hears conversational speech. No nasal drainage. NECK: Supple without lymphadenopathy. No JV distention. CHEST: Non-labored respirations and equal bilateral excursions. CARDIOVASCULAR: Regular rate and rhythm. Palpable 2+ radial pulses. ABDOMEN: Soft, tender at the right lower quadrant without guarding. MUSCULOSKELETAL: No clubbing, cyanosis or edema. NEUROLOGIC: No focal or lateralizing signs. PSYCH: Appropriate affect. Alert and oriented to person, place and time. SKIN: Well perfused. Good skin turgor. ASSESSMENT: 1. Right lower quadrant pain. 2. Chronic appendicitis PLAN: 1. I have discussed benefits and risks of robotic appendectomy. 2. Bilateral SCDs. 3. DVT prophylaxis 4. Patient is elevated risk due to comorbidities including morbid obesity Past Medical History Past Medical History: GERD/Reflux Additional Past Medical History / Comment(s): kidney stones 2013 History of Any Multi-Drug Resistant Organisms: None Reported Past Surgical History: Cholecystectomy, Orthopedic Surgery Additional Past Surgical History / Comment(s): Laparoscopy, knee surgeries x 5, egd/colonoscopies Past Anesthesia/Blood Transfusion Reactions: Postoperative Nausea & Vomiting (PONV) Smoking Status: Never smoker - Past Family History Father Family Medical History: Diabetes Mellitus, Hypertension Medications and Allergies Home Medications Medication Instructions Recorded Confirmed Type Acetaminophen Tab [Tylenol Tab] 1,000 mg PO Q6HR 03/26/25 03/26/25 History Famotidine [Pepcid] 40 mg PO HS 03/26/25 03/26/25 History Norethindrone Acetate 5 mg PO DAILY 03/26/25 03/26/25 History Omeprazole [PriLOSEC] 40 mg PO DAILY 03/26/25 03/26/25 History Allergies Allergy/AdvReac Type Severity Reaction Status Date / Time latex Allergy Skin Verified 08/15/18 08:18 Irritation
[~2025-03-29 06:53] MED LIST changes: -LACTATED RINGERS 1,000 ML BAG ONE; -LIDOCAINE 1% INJ 10MG/ML (20 ML MDV) ONE; +ONDANSETRON 4 MG/2 ML VIAL IVP ONE; -PROPOFOL 10 MG/ML 20 ML VIAL IV ONE; +metroNIDAZOLE-NS PMX 500 MG in SALINE 1 100ML.BAG IVPB PRN
[2025-03-29] MEDS: IV FLUID CONTINUATION 1,000 ML IV ONE ×2 (08:07→10:56)
[2025-03-29] MEDS: LACTATED RINGERS 1,000 ML IV SCH (08:07)
[2025-03-29] MEDS: MELOXICAM 7.5 MG TAB PO PRN (08:19)
[2025-03-29] MEDS: ACETAMINOPHEN TAB 500 MG TAB PO PRN (08:19)
[2025-03-29 08:20] LABS: Basophils # (A) 0.03 10*3/uL (0.00-0.10); Basophils % (A) 0.3 %; Eosinophils # (A) 0.02 10*3/uL (0.04-0.35); Eosinophils % (A) 0.2 %; HCT 39.5 % (37.2-46.3); HGB 13.3 g/dL (12.0-15.0); Lymphocytes % (A) 19.9 %; MCH 27.8 pg (27.0-32.0); MCHC 33.7 g/dL (32.0-37.0); MCV 82.6 fL (80.0-97.0); Monocytes # (A) 0.56 10*3/uL (0.20-1.00); Monocytes % (A) 5.1 %; Neutrophils # (A) 8.22 10*3/uL (1.80-7.70); Neutrophils % (A) 74.2 %; Platelet Count 449 10*3/uL (140-440); RBC 4.78 10*6/uL (4.10-5.20); RDW 14.4 % (11.5-14.5); WBC 11.06 10*3/uL (4.50-10.00)
[2025-03-29] MEDS: DEXAMETHASONE SOD PHOSPHATE 4 MG/ML 1 ML VIAL IV ONE (08:20)
[2025-03-29] MEDS: ONDANSETRON 4 MG/2 ML VIAL IVP PRN (08:20)
[2025-03-29] MEDS: MIDAZOLAM 2 MG/2 ML VIAL IV ONE (08:26)
[2025-03-29] MEDS: HEPARIN SODIUM,PORCINE 5,000 UNIT/ML 1 ML VIAL SQ PRN (08:27)
[2025-03-29 08:35] LABS: ALT 16 U/L (4-34); African American GFR (CKD) >90 (>60 ml/min/1.73 sqM); Albumin 4.4 g/dL (3.5-5.0); Anion Gap 12 mmol/L; Blood Urea Nitrogen 9 mg/dL (7-17); Calcium 9.8 mg/dL (8.4-10.2); Carbon Dioxide 21 mmol/L (22-30); Chloride 108 mmol/L (98-107); Glucose 94 mg/dL (74-99); Non-African American GFR(CKD) >90 (>60 ml/min/1.73 sqM); Sodium 141 mmol/L (137-145); Total Protein 7.9 g/dL (6.3-8.2)
[2025-03-29 08:36] LABS: AST 21 U/L (14-36); Alkaline Phosphatase 65 U/L (38-126); Potassium 4.6 mmol/L (3.5-5.1)
[2025-03-29] MEDS: droPERidol 2.5 MG/ML VIAL IVP ONE (08:39)
[2025-03-29] MEDS ORDERED: HYDROmorphone (PF) 1 MG/ML ONE (09:13)
[2025-03-29] MEDS ORDERED: diphenhydrAMINE 50 MG/ML 1 ML VIAL ONE (09:13)
[2025-03-29] MEDS ORDERED: LIDOCAINE 4% LTA KIT (4 ML) TOPICAL ONE (09:13)
[2025-03-29] MEDS ORDERED: ROCURONIUM 10 MG/ML (5 ML VIAL) IV ONE (09:13)
[2025-03-29] MEDS ORDERED: GLYCOPYRROLATE 0.2 MG/ML 2 ML VIAL ONE (09:13)
[2025-03-29] MEDS ORDERED: LIDOCAINE 1% INJ 10MG/ML (20 ML MDV) ONE (09:13)
[2025-03-29] MEDS ORDERED: MIDAZOLAM 2 MG/2 ML VIAL ONE (09:13)
[2025-03-29] MEDS ORDERED: NEOSTIGMINE 1 MG/ML 10 ML VIAL ONE (09:13)
[2025-03-29] MEDS ORDERED: PROPOFOL 10 MG/ML 20 ML VIAL IV ONE (09:13)
[2025-03-29] MEDS ORDERED: fentaNYL (PF) 50 MCG/ML 2 ML AMP ONE (09:13)
[2025-03-29] MEDS ORDERED: SUCCINYLCHOLINE CHLORIDE 200 MG/10 ML VIAL IV ONE (09:13)
[2025-03-29] MEDS: ceFAZolin 2 GM in DEXTROSE 5% IN WATER 50 ML IVPB PRN (09:18)
[2025-03-29] MEDS: LIDOCAINE 1%-EPI 1:100,000 20 ML VIAL SQ ONE (09:53)
[2025-03-29] MEDS: LABETALOL SYRINGE 5 MG/ML (4 ML SYR) IVP STA (10:50)
[2025-03-29 10:56] VITALS: TEMP 97
--- NOTE | 2025-03-29 10:59 | P.OP ---
Date of Procedure: 03/29/25 Description of Procedure: SURGEON: SHIRA VARGAS MD Preoperative Diagnosis: 1. Right lower quadrant abdominal pain Postoperative Diagnosis: 1. Pelvic adhesions 2. Peritoneal adhesions 3. Appendicitis Procedure(s) Performed: 1. Robotic-assisted daVinci Xi laparoscopic appendectomy Anesthesia: GETA, local Estimated Blood Loss (ml): 5 Pathology: other (appendix) Condition: stable Disposition: floor Operative Findings: 1. Moderate severe pelvic including lower abdominal adhesions consistent with patient's area of pain 2. Persistent right lower quadrant abdominal pain with appendix, appendectomy performed 3. Patient previously marked areas of pain along the abdomen consistent with intraoperative findings INDICATIONS: The patient is a 35-year-old female who presents manage severe right lower quadrant abdominal pain. Benefits and risks, including infection, open surgery, and bleeding for additional surgery was discussed at length. Informed consent was obtained. All questions of the patient and family were answered. DESCRIPTION: The patient was transferred to the operating room and placed in supine position. The patient had previously voided. The abdomen was then prepped and draped in standard sterile fashion as Ioban was placed along the abdomen to minimize any contamination of skin floor. After a timeout protocol was performed, attention was then brought to the left upper quadrant whereby a 0 degree 5 mm laparoscopic trocar entry was performed. The abdominal cavity was entered and insufflated to 12 mmHg pressure, which was tolerated well. Diagnostic laparoscopy demonstrated no injury to bowel, viscera or mesentery. Next a robotic 8-mm trocar was placed along the left lower quadrant, 10-cm lateral to the midline. A 12 mm port was placed along the left upper quadrant and another 8-mm port left lateral abdominal wall. Ports were placed 8 cm apart from each other including 15-20 cm away from the target anatomy of the right pelvis. The patient was then placed in Trendelenburg position, at least 14 down and right side up at least 7. The robotic da Tricia XI system was primed and docked from the left side of the patient. Using atraumatic graspers and vessel sealer, the robotic system was docked and primed as described. Instruments were interchanged by the field administrative assistant including graspers, robotic stapler and vessel sealer. Next, attention was brought to identify the cecum. A systematic view within the abdominal cavity was started with the small bowel which was unremarkable. The base of the cecum was unremarkable. The appendix was retrocecal coursing towards right upper quadrant behind the ascending colon with additional dissection required. The body of the appendix was moderately dilated with moderate periappendicitis. No perforation was identified. The appendix was dissected free from its surrounding tissues. Blue 45 mm robotic staple loads were fired along the base of the appendix. The staple line was hemostatic. Hemostasis was checked prior to undocking the robot. The robot was undocked. I re-scrubbed into the case. The specimen was removed from the abdominal cavity with an Endo Catch bag through the 12 mm trocar at the left upper quadrant. All instruments and pneumoperitoneum were evacuated from the abdominal cavity. Local anesthetic was infiltrated to all wounds for postop analgesia. All incisions were also cleansed with diluted hydrogen peroxide. The incisions were closed with 4-0 Monocryl. Exofin glue was applied to the rest of the skin incisions. The patient had tolerated the procedure well. The patient was extubated successfully. The patient was transferred to the postanesthesia care unit in stable condition. Plan - Discharge Summary Discharge Rx Participant: Yes New Discharge Prescriptions: New Simethicone [Gas-X] 125 mg PO AC-TID PRN #20 capsule PRN Reason: Pain Ibuprofen [Motrin] 600 mg PO Q8HR PRN #30 tab PRN Reason: Pain Acetaminophen Tab [Tylenol Tab] 1,000 mg PO Q6HR PRN #30 tablet PRN Reason: Pain Continue Acetaminophen Tab [Tylenol] 1,000 mg PO Q6HR Famotidine [Pepcid] 40 mg PO HS Ondansetron [Zofran] 4 mg PO DAILY PRN PRN Reason: Nausea Omeprazole [PriLOSEC] 40 mg PO DAILY Norethindrone Acetate 5 mg PO DAILY Discharge Medication List Acetaminophen Tab [Tylenol] 1,000 mg PO Q6HR 03/26/25 [History] Famotidine [Pepcid] 40 mg PO HS 03/26/25 [History] Norethindrone Acetate 5 mg PO DAILY 03/26/25 [History] Omeprazole [PriLOSEC] 40 mg PO DAILY 03/26/25 [History] Acetaminophen Tab [Tylenol Tab] 1,000 mg PO Q6HR PRN #30 tablet 03/29/25 [Rx] Ibuprofen [Motrin] 600 mg PO Q8HR PRN #30 tab 03/29/25 [Rx] Ondansetron [Zofran] 4 mg PO DAILY PRN 03/29/25 [History] Simethicone [Gas-X] 125 mg PO AC-TID PRN #20 capsule 03/29/25 [Rx] Follow up Appointment(s)/Referral(s): Shira Vargas MD [STAFF PHYSICIAN] - 04/03/25 6:30 pm Patient Instructions/Handouts: Laparoscopic Appendectomy (DC), Lysis of Abdominal Adhesions (GEN) Activity/Diet/Wound Care/Special Instructions: TELEHEALTH - DR WILL CALL YOU BETWEEN 9 am to 8 pm NO LONG DRIVES OR AIRPLANE RIDES OVER 60 MINUTES FOR THE NEXT 2 WEEKS, 04/12/2025 DUE TO HIGH RISK OF PULMONARY EMBOLISM/DVTs May drive in 72 hrs Recommend low-fat diet for the next 2 days. No lifting over 10 pounds in 2 weeks 04/12/2025 May shower. No bath tub soaks for two weeks 04/12/2025 Diet as tolerated. Use Tylenol, simethicone and ibuprofen or Aleve scheduled for the next 24-48 hours for best pain relief. Use ice along incisions for today to prevent swelling. Discharge Disposition: HOME SELF-CARE
[2025-03-29] MEDS: HYDROmorphone 0.5 MG/0.5 ML SYRINGE IVP PRN (11:08)
[2025-03-29] MEDS: KETOROLAC 15 MG/ML 1 ML VIAL IVP ONE (12:46)
[2025-03-29 13:10] VITALS: BP 119/78; PULSE 92; RESP 18
--- NOTE | 2025-03-30 16:44 | P.PN ---
Progress Note - Text Progress Note Date: 03/30/25 Patient contacted at home. She reports her pre-existing right upper and right lower quadrant abdominal pain is completely resolved since surgery. Patient reports phlegm. Patient advised to use warm tea twice daily. Follow-up phone call in 5 days described. All questions addressed.
== END 2025-03-29 13:24 | disposition home or self-care (01) ==
LOC: OR 06:53
PROVIDERS: ATTEND Surgery Plastic and Reconstructive Surgery
DX: K35.80 Unspecified acute appendicitis (principal); K66.0 Peritoneal adhesions (postprocedural) (postinfection); N73.6 Female pelvic peritoneal adhesions (postinfective); K21.9 Gastro-esophageal reflux disease without esophagitis; E66.01 Morbid (severe) obesity due to excess calories; Z91.040 Latex allergy status; Z90.49 Acquired absence of other specified parts of digestive tract; Z79.899 Other long term (current) drug therapy; Z87.442 Personal history of urinary calculi
CPT/HCPCS: 44970; S2900; 80053; 81025; 85025; 88304